=== PATIENT | female | born 1970 | race Caucasian/White ===

== ENCOUNTER 2022-08-13 17:15 | Outpatient (CLI) | payer OTHER, SELFPAY | END 2022-08-13 17:16 | disposition home or self-care (01) | LOC: AMB 08-25 06:30 | PROVIDERS: PCP Obstetrics & Gynecology; Visit Provider Family Medicine | DX: R07.89 Other chest pain (principal) | CPT/HCPCS: A0425; A0427 ==

== ENCOUNTER 2022-08-13 17:44 | Inpatient (IN) | payer OTHER, SELFPAY ==
[2022-08-13] VITALS (31 sets, daily range): BP systolic 112–156; BP diastolic 69–98; PULSE 54–79; RESP 16–18; TEMP 36.6; O2SAT 95–99; BMI 19.8
--- NOTE | 2022-08-13 18:18 | ED_ITS ---
HPI - Chest Pain General Chief Complaint: Chest Pain <Jesus Bazan MD - Last Filed: 08/14/22 01:06> Stated Complaint: Ill <Jesus Bazan MD - Last Filed: 08/14/22 01:06> Time Seen by Provider: 08/13/22 17:55 <Jesus Bazan MD - Last Filed: 08/14/22 01:06> History of Present Illness HPI narrative: 52-year-old woman who was out walking her dogs when had sudden onset of burning aching mid chest pain and then feeling like her heart was beating really hard. She then started to have some tingling in her extremities specifically she was referring to her arms. Does recall herself to be hyperventilating but she says she did try to control her breathing and that seemed to help. Does not have any cardiovascular disease that she knows of. No significant family history of cardiovascular disease. This discomfort lasted around 20 minutes she says although she also wonders how long it is going to last admitting it is a fraction of what it was before. She does not report feeling lightheadedness. She was feeling some nausea. Does exercise regularly walking and running apparently. No exercise intolerance noted. <Jesus Bazan MD - Last Filed: 08/14/22 01:06> Related Data Home Medications: Home Medications Medication Instructions Recorded Confirmed No Known Home Medications 08/13/22 08/13/22 <Jesus Bazan MD - Last Filed: 08/14/22 01:06> Allergies/Adverse Reactions: Allergies Allergy/AdvReac Type Severity Reaction Status Date / Time penicillin V Allergy Severe Rash Verified 05/31/22 16:08 amoxicillin Allergy Mild Hives Verified 05/31/22 16:08 <Jesus Bazan MD - Last Filed: 08/14/22 01:06> Review of Systems Status of ROS Reports: 10 or more systems reviewed and unremarkable except as noted in History and below <Jesus Bazan MD - Last Filed: 08/14/22 01:06> [facility] Medical History: Medical History (Updated 08/14/22 @ 01:18 by Nabeel Brito RN) Encounter for well woman exam No significant past medical history <Jesus Bazan MD - Last Filed: 08/14/22 01:06> Surgical History: Surgical History (Updated 08/14/22 @ 01:18 by Nabeel Brito RN) No significant past surgical history <Jesus Bazan MD - Last Filed: 08/14/22 01:06> Social History: Social History Highest level of school completed/degree received: Bachelor's degree Smoking Status: Never smoker How often do you have a drink containing alcohol: 2-3 times a week How many standard drinks containing alcohol do you have on a typical day: 1 or 2 How often do you have six or more drinks on one occasion: Never AUDIT-C Alcohol total score: 3 Non-prescribed substance use: denies use Caffeine: Yes (DAILY IN AM) service: No <Jesus Bazan MD - Last Filed: 08/14/22 01:06> Exam Narrative Exam Narrative: Very pleasant, calm, slim. Speaks in a very measured manner. Oropharynx is unremarkable. Neck is supple. Lungs are clear breath sounds throughout No reproducible pain to palpation. Abdomen is soft and nontender. Moving all extremities without difficulty. She is well-perfused peripherally with equal radial pulses.. No sensory disturbance appreciated. Full strength throughout. <Jesus Bazan MD - Last Filed: 08/14/22 01:06> Const Vital Signs, click to edit/add: Vital Signs - 24 hr 08/13/22 18:00 08/13/22 18:23 08/13/22 18:05 Temperature 97.8 F Pulse Rate 63 Pulse Rate [Pulse Oximeter] 63 Respiratory Rate 16 Blood Pressure 135/82 Blood Pressure [Left Upper Arm] 135/82 Pulse Oximetry 97 98 97 Oxygen Delivery Method Room Air 08/13/22 18:06 08/13/22 18:30 08/13/22 19:11 Temperature Pulse Rate 63 62 55 L Pulse Rate [Pulse Oximeter] Respiratory Rate Blood Pressure Blood Pressure [Left Upper Arm] Pulse Oximetry 98 99 97 Oxygen Delivery Method 08/13/22 19:12 08/13/22 19:30 08/13/22 19:31 Temperature Pulse Rate 60 73 74 Pulse Rate [Pulse Oximeter] Respiratory Rate Blood Pressure 126/81 135/98 H Blood Pressure [Left Upper Arm] Pulse Oximetry 95 97 97 Oxygen Delivery Method 08/13/22 19:32 08/13/22 20:00 08/13/22 20:01 Temperature Pulse Rate 65 79 75 Pulse Rate [Pulse Oximeter] Respiratory Rate Blood Pressure 148/88 H Blood Pressure [Left Upper Arm] Pulse Oximetry 98 98 98 Oxygen Delivery Method 08/13/22 20:27 08/13/22 20:30 08/13/22 20:31 Temperature Pulse Rate 63 75 77 Pulse Rate [Pulse Oximeter] Respiratory Rate Blood Pressure 156/92 H 124/77 Blood Pressure [Left Upper Arm] Pulse Oximetry 98 96 96 Oxygen Delivery Method 08/13/22 20:41 08/13/22 20:51 08/13/22 21:00 Temperature Pulse Rate 74 63 63 Pulse Rate [Pulse Oximeter] Respiratory Rate Blood Pressure 128/76 128/75 Blood Pressure [Left Upper Arm] Pulse Oximetry 96 97 98 Oxygen Delivery Method 08/13/22 21:01 08/13/22 21:02 08/13/22 21:11 Temperature Pulse Rate 61 60 58 L Pulse Rate [Pulse Oximeter] Respiratory Rate Blood Pressure 124/85 112/71 Blood Pressure [Left Upper Arm] Pulse Oximetry 97 97 98 Oxygen Delivery Method 08/13/22 21:30 08/13/22 21:31 08/13/22 21:32 Temperature Pulse Rate 57 L 66 63 Pulse Rate [Pulse Oximeter] Respiratory Rate Blood Pressure 112/69 Blood Pressure [Left Upper Arm] Pulse Oximetry 97 96 96 Oxygen Delivery Method 08/13/22 22:00 08/13/22 22:01 08/13/22 22:02 Temperature Pulse Rate 58 L 75 57 L Pulse Rate [Pulse Oximeter] Respiratory Rate Blood Pressure 116/75 Blood Pressure [Left Upper Arm] Pulse Oximetry 96 97 97 Oxygen Delivery Method 08/13/22 22:30 08/13/22 22:31 08/13/22 23:01 Temperature Pulse Rate 61 61 64 Pulse Rate [Pulse Oximeter] Respiratory Rate 18 Blood Pressure 124/74 123/74 Blood Pressure [Left Upper Arm] Pulse Oximetry 97 97 98 Oxygen Delivery Method 08/13/22 23:31 08/14/22 00:01 08/14/22 00:31 Temperature Pulse Rate 54 L 57 L 55 L Pulse Rate [Pulse Oximeter] Respiratory Rate 16 16 16 Blood Pressure 116/71 123/75 130/80 Blood Pressure [Left Upper Arm] Pulse Oximetry 97 97 97 Oxygen Delivery Method 08/14/22 01:01 08/14/22 01:31 08/14/22 02:01 Temperature Pulse Rate 67 67 54 L Pulse Rate [Pulse Oximeter] Respiratory Rate 16 16 16 Blood Pressure 115/69 117/83 124/76 Blood Pressure [Left Upper Arm] Pulse Oximetry 96 98 97 Oxygen Delivery Method 08/14/22 02:31 08/14/22 03:01 08/14/22 03:31 Temperature Pulse Rate 73 66 63 Pulse Rate [Pulse Oximeter] Respiratory Rate 16 16 18 Blood Pressure 115/77 131/67 130/79 Blood Pressure [Left Upper Arm] Pulse Oximetry 97 100 98 Oxygen Delivery Method 08/14/22 04:01 08/14/22 04:31 08/14/22 05:01 Temperature Pulse Rate 57 L 73 56 L Pulse Rate [Pulse Oximeter] Respiratory Rate 18 16 18 Blood Pressure 122/78 114/68 130/83 Blood Pressure [Left Upper Arm] Pulse Oximetry 97 96 98 Oxygen Delivery Method 08/14/22 05:26 08/14/22 06:01 08/14/22 07:00 Temperature Pulse Rate 70 59 L Pulse Rate [Pulse Oximeter] 58 L Respiratory Rate 18 18 Blood Pressure 127/74 Blood Pressure [Left Upper Arm] 130/83 Pulse Oximetry 98 100 99 Oxygen Delivery Method Room Air 08/14/22 07:01 08/14/22 08:00 08/14/22 08:01 Temperature Pulse Rate 65 67 65 Pulse Rate [Pulse Oximeter] Respiratory Rate Blood Pressure 127/81 128/77 Blood Pressure [Left Upper Arm] Pulse Oximetry 98 100 100 Oxygen Delivery Method 08/14/22 09:00 08/14/22 09:01 08/14/22 09:02 Temperature Pulse Rate 58 L 62 62 Pulse Rate [Pulse Oximeter] Respiratory Rate Blood Pressure 127/85 Blood Pressure [Left Upper Arm] Pulse Oximetry 98 98 97 Oxygen Delivery Method 08/14/22 09:39 08/14/22 10:00 08/14/22 10:01 Temperature Pulse Rate 53 L 55 L 58 L Pulse Rate [Pulse Oximeter] Respiratory Rate Blood Pressure 134/83 130/79 Blood Pressure [Left Upper Arm] Pulse Oximetry 100 99 99 Oxygen Delivery Method 08/14/22 11:00 08/14/22 11:05 08/14/22 11:42 Temperature Pulse Rate 70 69 77 Pulse Rate [Pulse Oximeter] Respiratory Rate Blood Pressure 125/87 Blood Pressure [Left Upper Arm] Pulse Oximetry 96 97 95 Oxygen Delivery Method 08/14/22 11:46 08/14/22 11:51 08/14/22 11:56 Temperature Pulse Rate 65 62 Pulse Rate [Pulse Oximeter] Respiratory Rate Blood Pressure 134/84 129/77 124/79 Blood Pressure [Left Upper Arm] Pulse Oximetry 96 96 Oxygen Delivery Method <Jesus Baazn MD - Last Filed: 08/14/22 01:06> Vital Signs - 24 hr 08/13/22 18:00 08/13/22 18:23 08/13/22 18:05 Temperature 97.8 F Pulse Rate 63 Pulse Rate [Pulse Oximeter] 63 Respiratory Rate 16 Blood Pressure 135/82 Blood Pressure [Left Upper Arm] 135/82 Pulse Oximetry 97 98 97 Oxygen Delivery Method Room Air 08/13/22 18:06 08/13/22 18:30 08/13/22 19:11 Temperature Pulse Rate 63 62 55 L Pulse Rate [Pulse Oximeter] Respiratory Rate Blood Pressure Blood Pressure [Left Upper Arm] Pulse Oximetry 98 99 97 Oxygen Delivery Method 08/13/22 19:12 08/13/22 19:30 08/13/22 19:31 Temperature Pulse Rate 60 73 74 Pulse Rate [Pulse Oximeter] Respiratory Rate Blood Pressure 126/81 135/98 H Blood Pressure [Left Upper Arm] Pulse Oximetry 95 97 97 Oxygen Delivery Method 08/13/22 19:32 08/13/22 20:00 08/13/22 20:01 Temperature Pulse Rate 65 79 75 Pulse Rate [Pulse Oximeter] Respiratory Rate Blood Pressure 148/88 H Blood Pressure [Left Upper Arm] Pulse Oximetry 98 98 98 Oxygen Delivery Method 08/13/22 20:27 08/13/22 20:30 08/13/22 20:31 Temperature Pulse Rate 63 75 77 Pulse Rate [Pulse Oximeter] Respiratory Rate Blood Pressure 156/92 H 124/77 Blood Pressure [Left Upper Arm] Pulse Oximetry 98 96 96 Oxygen Delivery Method 08/13/22 20:41 08/13/22 20:51 08/13/22 21:00 Temperature Pulse Rate 74 63 63 Pulse Rate [Pulse Oximeter] Respiratory Rate Blood Pressure 128/76 128/75 Blood Pressure [Left Upper Arm] Pulse Oximetry 96 97 98 Oxygen Delivery Method 08/13/22 21:01 11/30/22 21:02 08/13/22 21:11 Temperature Pulse Rate 61 60 58 L Pulse Rate [Pulse Oximeter] Respiratory Rate Blood Pressure 124/85 112/71 Blood Pressure [Left Upper Arm] Pulse Oximetry 97 97 98 Oxygen Delivery Method 08/13/22 21:30 08/13/22 21:31 08/13/22 21:32 Temperature Pulse Rate 57 L 66 63 Pulse Rate [Pulse Oximeter] Respiratory Rate Blood Pressure 112/69 Blood Pressure [Left Upper Arm] Pulse Oximetry 97 96 96 Oxygen Delivery Method 08/13/22 22:00 08/13/22 22:01 08/13/22 22:02 Temperature Pulse Rate 58 L 75 57 L Pulse Rate [Pulse Oximeter] Respiratory Rate Blood Pressure 116/75 Blood Pressure [Left Upper Arm] Pulse Oximetry 96 97 97 Oxygen Delivery Method 08/13/22 22:30 08/13/22 22:31 08/13/22 23:01 Temperature Pulse Rate 61 61 64 Pulse Rate [Pulse Oximeter] Respiratory Rate 18 Blood Pressure 124/74 123/74 Blood Pressure [Left Upper Arm] Pulse Oximetry 97 97 98 Oxygen Delivery Method 08/13/22 23:31 08/14/22 00:01 08/14/22 00:31 Temperature Pulse Rate 54 L 57 L 55 L Pulse Rate [Pulse Oximeter] Respiratory Rate 16 16 16 Blood Pressure 116/71 123/75 130/80 Blood Pressure [Left Upper Arm] Pulse Oximetry 97 97 97 Oxygen Delivery Method 08/14/22 01:01 08/14/22 01:31 08/14/22 02:01 Temperature Pulse Rate 67 67 54 L Pulse Rate [Pulse Oximeter] Respiratory Rate 16 16 16 Blood Pressure 115/69 117/83 124/76 Blood Pressure [Left Upper Arm] Pulse Oximetry 96 98 97 Oxygen Delivery Method 08/14/22 02:31 08/14/22 03:01 08/14/22 03:31 Temperature Pulse Rate 73 66 63 Pulse Rate [Pulse Oximeter] Respiratory Rate 16 16 18 Blood Pressure 115/77 131/67 130/79 Blood Pressure [Left Upper Arm] Pulse Oximetry 97 100 98 Oxygen Delivery Method 08/14/22 04:01 08/14/22 04:31 08/14/22 05:01 Temperature Pulse Rate 57 L 73 56 L Pulse Rate [Pulse Oximeter] Respiratory Rate 18 16 18 Blood Pressure 122/78 114/68 130/83 Blood Pressure [Left Upper Arm] Pulse Oximetry 97 96 98 Oxygen Delivery Method 08/14/22 05:26 08/14/22 06:01 08/14/22 07:00 Temperature Pulse Rate 70 59 L Pulse Rate [Pulse Oximeter] 58 L Respiratory Rate 18 18 Blood Pressure 127/74 Blood Pressure [Left Upper Arm] 130/83 Pulse Oximetry 98 100 99 Oxygen Delivery Method Room Air 08/14/22 07:01 08/14/22 08:00 08/14/22 08:01 Temperature Pulse Rate 65 67 65 Pulse Rate [Pulse Oximeter] Respiratory Rate Blood Pressure 127/81 128/77 Blood Pressure [Left Upper Arm] Pulse Oximetry 98 100 100 Oxygen Delivery Method 08/14/22 09:00 08/14/22 09:01 08/14/22 09:02 Temperature Pulse Rate 58 L 62 62 Pulse Rate [Pulse Oximeter] Respiratory Rate Blood Pressure 127/85 Blood Pressure [Left Upper Arm] Pulse Oximetry 98 98 97 Oxygen Delivery Method 08/14/22 09:39 08/14/22 10:00 08/14/22 10:01 Temperature Pulse Rate 53 L 55 L 58 L Pulse Rate [Pulse Oximeter] Respiratory Rate Blood Pressure 134/83 130/79 Blood Pressure [Left Upper Arm] Pulse Oximetry 100 99 99 Oxygen Delivery Method 08/14/22 11:00 08/14/22 11:05 08/14/22 11:42 Temperature Pulse Rate 70 69 77 Pulse Rate [Pulse Oximeter] Respiratory Rate Blood Pressure 125/87 Blood Pressure [Left Upper Arm] Pulse Oximetry 96 97 95 Oxygen Delivery Method 08/14/22 11:46 08/14/22 11:51 08/14/22 11:56 Temperature Pulse Rate 65 62 Pulse Rate [Pulse Oximeter] Respiratory Rate Blood Pressure 134/84 129/77 124/79 Blood Pressure [Left Upper Arm] Pulse Oximetry 96 96 Oxygen Delivery Method <Makenzie Javed MD - Last Filed: 08/15/22 15:50> Vital Signs - 24 hr 08/13/22 18:00 08/13/22 18:23 08/13/22 18:05 Temperature 97.8 F Pulse Rate 63 Pulse Rate [Pulse Oximeter] 63 Respiratory Rate 16 Blood Pressure 135/82 Blood Pressure [Left Upper Arm] 135/82 Pulse Oximetry 97 98 97 Oxygen Delivery Method Room Air 08/13/22 18:06 08/13/22 18:30 08/13/22 19:11 Temperature Pulse Rate 63 62 55 L Pulse Rate [Pulse Oximeter] Respiratory Rate Blood Pressure Blood Pressure [Left Upper Arm] Pulse Oximetry 98 99 97 Oxygen Delivery Method 08/13/22 19:12 08/13/22 19:30 08/13/22 19:31 Temperature Pulse Rate 60 73 74 Pulse Rate [Pulse Oximeter] Respiratory Rate Blood Pressure 126/81 135/98 H Blood Pressure [Left Upper Arm] Pulse Oximetry 95 97 97 Oxygen Delivery Method 08/13/22 19:32 08/13/22 20:00 08/13/22 20:01 Temperature Pulse Rate 65 79 75 Pulse Rate [Pulse Oximeter] Respiratory Rate Blood Pressure 148/88 H Blood Pressure [Left Upper Arm] Pulse Oximetry 98 98 98 Oxygen Delivery Method 08/13/22 20:27 08/13/22 20:30 08/13/22 20:31 Temperature Pulse Rate 63 75 77 Pulse Rate [Pulse Oximeter] Respiratory Rate Blood Pressure 156/92 H 124/77 Blood Pressure [Left Upper Arm] Pulse Oximetry 98 96 96 Oxygen Delivery Method 08/13/22 20:41 08/13/22 20:51 08/13/22 21:00 Temperature Pulse Rate 74 63 63 Pulse Rate [Pulse Oximeter] Respiratory Rate Blood Pressure 128/76 128/75 Blood Pressure [Left Upper Arm] Pulse Oximetry 96 97 98 Oxygen Delivery Method 08/13/22 21:01 08/13/22 21:02 08/13/22 21:11 Temperature Pulse Rate 61 60 58 L Pulse Rate [Pulse Oximeter] Respiratory Rate Blood Pressure 124/85 112/71 Blood Pressure [Left Upper Arm] Pulse Oximetry 97 97 98 Oxygen Delivery Method 08/13/22 21:30 08/13/22 21:31 08/13/22 21:32 Temperature Pulse Rate 57 L 66 63 Pulse Rate [Pulse Oximeter] Respiratory Rate Blood Pressure 112/69 Blood Pressure [Left Upper Arm] Pulse Oximetry 97 96 96 Oxygen Delivery Method 08/13/22 22:00 08/13/22 22:01 08/13/22 22:02 Temperature Pulse Rate 58 L 75 57 L Pulse Rate [Pulse Oximeter] Respiratory Rate Blood Pressure 116/75 Blood Pressure [Left Upper Arm] Pulse Oximetry 96 97 97 Oxygen Delivery Method 08/13/22 22:30 08/13/22 22:31 08/13/22 23:01 Temperature Pulse Rate 61 61 64 Pulse Rate [Pulse Oximeter] Respiratory Rate 18 Blood Pressure 124/74 123/74 Blood Pressure [Left Upper Arm] Pulse Oximetry 97 97 98 Oxygen Delivery Method 08/13/22 23:31 08/14/22 00:01 08/14/22 00:31 Temperature Pulse Rate 54 L 57 L 55 L Pulse Rate [Pulse Oximeter] Respiratory Rate 16 16 16 Blood Pressure 116/71 123/75 130/80 Blood Pressure [Left Upper Arm] Pulse Oximetry 97 97 97 Oxygen Delivery Method 08/14/22 01:01 08/14/22 01:31 08/14/22 02:01 Temperature Pulse Rate 67 67 54 L Pulse Rate [Pulse Oximeter] Respiratory Rate 16 16 16 Blood Pressure 115/69 117/83 124/76 Blood Pressure [Left Upper Arm] Pulse Oximetry 96 98 97 Oxygen Delivery Method 08/14/22 02:31 08/14/22 03:01 08/14/22 03:31 Temperature Pulse Rate 73 66 63 Pulse Rate [Pulse Oximeter] Respiratory Rate 16 16 18 Blood Pressure 115/77 131/67 130/79 Blood Pressure [Left Upper Arm] Pulse Oximetry 97 100 98 Oxygen Delivery Method 08/14/22 04:01 08/14/22 04:31 08/14/22 05:01 Temperature Pulse Rate 57 L 73 56 L Pulse Rate [Pulse Oximeter] Respiratory Rate 18 16 18 Blood Pressure 122/78 114/68 130/83 Blood Pressure [Left Upper Arm] Pulse Oximetry 97 96 98 Oxygen Delivery Method 08/14/22 05:26 08/14/22 06:01 08/14/22 07:00 Temperature Pulse Rate 70 59 L Pulse Rate [Pulse Oximeter] 58 L Respiratory Rate 18 18 Blood Pressure 127/74 Blood Pressure [Left Upper Arm] 130/83 Pulse Oximetry 98 100 99 Oxygen Delivery Method Room Air 08/14/22 07:01 08/14/22 08:00 08/14/22 08:01 Temperature Pulse Rate 65 67 65 Pulse Rate [Pulse Oximeter] Respiratory Rate Blood Pressure 127/81 128/77 Blood Pressure [Left Upper Arm] Pulse Oximetry 98 100 100 Oxygen Delivery Method 08/14/22 09:00 08/14/22 09:01 08/14/22 09:02 Temperature Pulse Rate 58 L 62 62 Pulse Rate [Pulse Oximeter] Respiratory Rate Blood Pressure 127/85 Blood Pressure [Left Upper Arm] Pulse Oximetry 98 98 97 Oxygen Delivery Method 08/14/22 09:39 08/14/22 10:00 08/14/22 10:01 Temperature Pulse Rate 53 L 55 L 58 L Pulse Rate [Pulse Oximeter] Respiratory Rate Blood Pressure 134/83 130/79 Blood Pressure [Left Upper Arm] Pulse Oximetry 100 99 99 Oxygen Delivery Method 08/14/22 11:00 08/14/22 11:05 08/14/22 11:42 Temperature Pulse Rate 70 69 77 Pulse Rate [Pulse Oximeter] Respiratory Rate Blood Pressure 125/87 Blood Pressure [Left Upper Arm] Pulse Oximetry 96 97 95 Oxygen Delivery Method 08/14/22 11:46 08/14/22 11:51 08/14/22 11:56 Temperature Pulse Rate 65 62 Pulse Rate [Pulse Oximeter] Respiratory Rate Blood Pressure 134/84 129/77 124/79 Blood Pressure [Left Upper Arm] Pulse Oximetry 96 96 Oxygen Delivery Method <Frances Drew MD - Last Filed: 08/14/22 16:30> Documenting provider has reviewed patient's vital signs: yes <Jesus Bazan MD - Last Filed: 08/14/22 01:06> Course Reevaluation(s) Reevaluation #1: Patient was signed out to me in 8:00 a.m. on 08/14/2022. Had remained stable throughout the night on a heparin drip. This morning patient's troponins were trending down. We tried again multiple times at multiple hospitals to transfer the patient and there were no available beds. She was having some more pain this morning to 10/24, therefore we did go ahead and start a nitro drip. EKG was repeated this morning without any significant changes. Patient was a dmitted to our medical floor for further management. <Frances Drew MD - Last Filed: 08/14/22 16:30> Vital Signs Vital signs: Initial Vital Signs Temperature 97.8 F 08/13/22 18:00 Temperature Source Temporal Artery Scan 08/13/22 18:00 Pulse Rate 63 08/13/22 18:00 Respiratory Rate 16 08/13/22 18:00 Blood Pressure 135/82 08/13/22 18:00 Blood Pressure Mean 99 08/13/22 18:00 Pulse Oximetry 97 08/13/22 18:00 Oxygen Delivery Method 08/13/22 18:00 Vital Signs Temperature 97.8 F 08/13/22 18:00 Pulse Rate 63 08/13/22 18:00 Respiratory Rate 16 08/13/22 18:00 Blood Pressure 135/82 08/13/22 18:00 Pulse Oximetry 97 08/13/22 18:00 Oxygen Delivery Method 08/13/22 18:00 Temperature 97.2 F L 08/15/22 11:00 Pulse Rate 62 08/15/22 11:00 Respiratory Rate 16 08/15/22 11:00 Blood Pressure 133/87 08/15/22 11:00 Pulse Oximetry 100 08/15/22 11:00 Oxygen Delivery Method 08/15/22 11:00 <Jesus Bazan MD - Last Filed: 08/14/22 01:06> Initial Vital Signs Temperature 97.8 F 08/13/22 18:00 Temperature Source Temporal Artery Scan 08/13/22 18:00 Pulse Rate 63 08/13/22 18:00 Respiratory Rate 16 08/13/22 18:00 Blood Pressure 135/82 08/13/22 18:00 Blood Pressure Mean 99 08/13/22 18:00 Pulse Oximetry 97 08/13/22 18:00 Oxygen Delivery Method 08/13/22 18:00 Vital Signs Temperature 97.8 F 08/13/22 18:00 Pulse Rate 63 08/13/22 18:00 Respiratory Rate 16 08/13/22 18:00 Blood Pressure 135/82 08/13/22 18:00 Pulse Oximetry 97 08/13/22 18:00 Oxygen Delivery Method 08/13/22 18:00 Temperature 97.2 F L 08/15/22 11:00 Pulse Rate 62 08/15/22 11:00 Respiratory Rate 16 08/15/22 11:00 Blood Pressure 133/87 08/15/22 11:00 Pulse Oximetry 100 08/15/22 11:00 Oxygen Delivery Method 08/15/22 11:00 <Makenzie Javed MD - Last Filed: 08/15/22 15:50> Initial Vital Signs Temperature 97.8 F 08/13/22 18:00 Temperature Source Temporal Artery Scan 08/13/22 18:00 Pulse Rate 63 08/13/22 18:00 Respiratory Rate 16 08/13/22 18:00 Blood Pressure 135/82 08/13/22 18:00 Blood Pressure Mean 99 08/13/22 18:00 Pulse Oximetry 97 08/13/22 18:00 Oxygen Delivery Method 08/13/22 18:00 Vital Signs Temperature 97.8 F 08/13/22 18:00 Pulse Rate 63 08/13/22 18:00 Respiratory Rate 16 08/13/22 18:00 Blood Pressure 135/82 08/13/22 18:00 Pulse Oximetry 97 08/13/22 18:00 Oxygen Delivery Method 08/13/22 18:00 Temperature 97.2 F L 08/15/22 11:00 Pulse Rate 62 08/15/22 11:00 Respiratory Rate 16 08/15/22 11:00 Blood Pressure 133/87 08/15/22 11:00 Pulse Oximetry 100 08/15/22 11:00 Oxygen Delivery Method 08/15/22 11:00 <Frances Drew MD - Last Filed: 08/14/22 16:30> MDM - Chest Pain MDM Narrative Medical decision making narrative: The tingling and necessitating controlling of breathing do sound suspicious for panic attack. Labs however were collected and indeed initial sets of troponin were positive. Had been reporting minimal chest discomfort though arrives later noting that tends to minimize. Since still having some discomfort will offer nitroglycerin. Trending trops and EKG Trops have elevated. Pain continues mildly. May have improved a little bit with nitroglycerin. A 3/10. EKG does seem to show some T-wave inversion although I think this is somewhat equivocal. Low risk for a ischemic cardiac thrombosis. No stressful event to account for stress vasospasm. Possible coronary dissection or pulmonary embolus however atypical symptoms for pulmonary embolus and D-dimer is negative. Have discussed again with Cardiology Dr. العلي. We had held ACS protocol heparin following the bolus dosing, pending normal D-dimer. Third EKG actually looks improved from prior so not qualifying for urgent transport as level 2 to [place]. Continuing heparin protocol. Overall more comfortable. 2/10 iscomfort. We have also exhausted options regionally for hospitalization. Will be handing off at change of shift. Looking again for cardiac cares in the morning. <Jesus Bazan MD - Last Filed: 08/14/22 01:06> The tingling and necessitating controlling of breathing do sound suspicious for panic attack. Labs however were collected and indeed initial sets of troponin were positive. Had been reporting minimal chest discomfort though arrives later noting that tends to minimize. Since still having some discomfort will offer nitroglycerin. Trending trops and EKG Trops have elevated. Pain continues mildly. May have improved a little bit with nitroglycerin. A 3/10. EKG does seem to show some T-wave inversion although I think this is somewhat equivocal. Low risk for a ischemic cardiac thrombosis. No stressful event to account for stress vasospasm. Possible coronary dissection or pulmonary embolus however atypical symptoms for pulmonary embolus and D-dimer is negative. Have discussed again with Cardiology Dr. العلي. We had held ACS protocol heparin following the bolus dosing, pending normal D-dimer. Third EKG actually looks improved from prior so not qualifying for urgent transport as level 2 to [place]. Continuing heparin protocol. Overall more comfortable. 10/24 iscomfort. We have also exhausted options regionally for hospitalization. Will be handing off at change of shift. Looking again for cardiac cares in the morning. Update 0 700: Dr. Javed: Patient has remained resting through the night, rating her pain typically around 2/10, marked improvement. Heparin running per protocol. Rate slightly decreased after initial labs. Has not required any further nitroglycerin. Spoke with [facility] and they have advised to call back after 730 with an update. We are still hoping to transfer. trend on troponin levels noted. Vital signs have remained stable, reassuring. <Makenzie Javed MD - Last Filed: 08/15/22 15:50> Lab Data Attestation: I reviewed the patient's lab results. <Jesus Bazan MD - Last Filed: 08/14/22 01:06> Labs: Lab Results 08/13/22 08/13/22 08/13/22 Range/Units 18:36 18:36 18:36 WBC 5.56 (4.50-11.00) K/uL Corrected WBC RBC 4.20 (4.00-5.20) m/uL Hgb 12.7 (12.0-16.0) gm/dL Hct 37.8 (33.0-51.0) % MCV 90 (80-100) fL MCH 30 (26-34) pg MCHC 34 (32-36) gm/dL RDW Coeff of Selam 12.0 (11.5-15.5) % Plt Count 186 (140-440) K/uL Neut % (Auto) 61.5 (42.0-72.0) % Lymph % (Auto) 30.4 (20-44) % Ritchie % (Auto) 6.3 (0.0-11.0) % Eos % (Auto) 0.9 (0.0-7.0) % Baso % (Auto) 0.9 (0.0-3.0) % Neut # (Auto) 3.42 (1.7-7.0) K/uL Lymph # (Auto) 1.69 (0.90-2.90) K/uL Ritchie # (Auto) 0.40 (0.00-0.90) K/UL Eos # (Auto) 0.05 (0.00-0.50) K/uL Baso # (Auto) 0.05 (0.00-0.30) K/uL Abs Immat Gran (auto) 0.00 (0.00-0.30) K/uL Imm/Tot Granulo (auto) 0.0 % INR (0.91-1.10) APTT (23-33) Seconds D-Dimer Quant (PE/DVT) (0.00-0.50) ug/ml Sodium 139 (135-149) mmol/L Potassium 4.7 (3.6-5.1) mmol/L Chloride 104 (96-114) mmol/L Carbon Dioxide 31 (20-32) mmol/L BUN 24 (7-30) mg/dL Creatinine 0.6 (0.5-1.5) mg/dL Estimated Creat Clear 87.96 Estimated GFR 108 ml/min Glucose 112 (60-115) mg/dL Calcium 9.2 (8.4-10.6) mg/dL Troponin I 0.26 H* (0.01-0.04) ng/mL TSH (0.270-4.20) uIU/mL SARS-CoV-2 (PCR) (Negative) Influenza Type A (PCR) (Negative) Influenza Type B (PCR) (Negative) RSV (PCR) (Negative) POC Troponin I 0.20 H (0.01-0.04) ng/ml 08/13/22 08/13/22 08/13/22 Range/Units 18:36 18:36 18:36 WBC Cancelled (4.50-11.00) K/uL Corrected WBC Cancelled RBC Cancelled (4.00-5.20) m/uL Hgb Cancelled (12.0-16.0) gm/dL Hct Cancelled (33.0-51.0) % MCV Cancelled (80-100) fL MCH Cancelled (26-34) pg MCHC Cancelled (32-36) gm/dL RDW Coeff of Selam Cancelled (11.5-15.5) % Plt Count Cancelled (140-440) K/uL Neut % (Auto) Cancelled (42.0-72.0) % Lymph % (Auto) Cancelled (20-44) % Ritchie % (Auto) Cancelled (0.0-11.0) % Eos % (Auto) Cancelled (0.0-7.0) % Baso % (Auto) Cancelled (0.0-3.0) % Neut # (Auto) Cancelled (1.7-7.0) K/uL Lymph # (Auto) Cancelled (0.90-2.90) K/uL Ritchie # (Auto) Cancelled (0.00-0.90) K/UL Eos # (Auto) Cancelled (0.00-0.50) K/uL Baso # (Auto) Cancelled (0.00-0.30) K/uL Abs Immat Gran (auto) Cancelled (0.00-0.30) K/uL Imm/Tot Granulo (auto) Cancelled % INR 0.97 0.98 (0.91-1.10) APTT 31 (23-33) Seconds D-Dimer Quant (PE/DVT) 0.32 (0.00-0.50) ug/ml Sodium (135-149) mmol/L Potassium (3.6-5.1) mmol/L Chloride (96-114) mmol/L Carbon Dioxide (20-32) mmol/L BUN (7-30) mg/dL Creatinine (0.5-1.5) mg/dL Estimated Creat Clear Estimated GFR ml/min Glucose (60-115) mg/dL Calcium (8.4-10.6) mg/dL Troponin I (0.01-0.04) ng/mL TSH (0.270-4.20) uIU/mL SARS-CoV-2 (PCR) (Negative) Influenza Type A (PCR) (Negative) Influenza Type B (PCR) (Negative) RSV (PCR) (Negative) POC Troponin I (0.01-0.04) ng/ml 08/13/22 08/13/22 08/13/22 Range/Units 18:36 19:30 20:10 WBC (4.50-11.00) K/uL Corrected WBC RBC (4.00-5.20) m/uL Hgb (12.0-16.0) gm/dL Hct (33.0-51.0) % MCV (80-100) fL MCH (26-34) pg MCHC (32-36) gm/dL RDW Coeff of Selam (11.5-15.5) % Plt Count (140-440) K/uL Neut % (Auto) (42.0-72.0) % Lymph % (Auto) (20-44) % Ritchie % (Auto) (0.0-11.0) % Eos % (Auto) (0.0-7.0) % Baso % (Auto) (0.0-3.0) % Neut # (Auto) (1.7-7.0) K/uL Lymph # (Auto) (0.90-2.90) K/uL Ritchie # (Auto) (0.00-0.90) K/UL Eos # (Auto) (0.00-0.50) K/uL Baso # (Auto) (0.00-0.30) K/uL Abs Immat Gran (auto) (0.00-0.30) K/uL Imm/Tot Granulo (auto) % INR (0.91-1.10) APTT (23-33) Seconds D-Dimer Quant (PE/DVT) (0.00-0.50) ug/ml Sodium (135-149) mmol/L Potassium (3.6-5.1) mmol/L Chloride (96-114) mmol/L Carbon Dioxide (20-32) mmol/L BUN (7-30) mg/dL Creatinine (0.5-1.5) mg/dL Estimated Creat Clear Estimated GFR ml/min Glucose (60-115) mg/dL Calcium (8.4-10.6) mg/dL Troponin I (0.01-0.04) ng/mL TSH 3.930 (0.270-4.20) uIU/mL SARS-CoV-2 (PCR) Negative SARS-CoV-2 (Negative) Influenza Type A (PCR) Negative PCR FLU A (Negative) Influenza Type B (PCR) Negative PCR FLU B (Negative) RSV (PCR) Negative PCR RSV (Negative) POC Troponin I 0.89 H (0.01-0.04) ng/ml 08/13/22 08/14/22 08/14/22 Range/Units 21:40 04:35 04:35 WBC 5.22 (4.50-11.00) K/uL Corrected WBC RBC 4.23 (4.00-5.20) m/uL Hgb 12.7 (12.0-16.0) gm/dL Hct 38.3 (33.0-51.0) % MCV 91 (80-100) fL MCH 30 (26-34) pg MCHC 33 (32-36) gm/dL RDW Coeff of Selam (11.5-15.5) % Plt Count 164 (140-440) K/uL Neut % (Auto) (42.0-72.0) % Lymph % (Auto) (20-44) % Ritchie % (Auto) (0.0-11.0) % Eos % (Auto) (0.0-7.0) % Baso % (Auto) (0.0-3.0) % Neut # (Auto) (1.7-7.0) K/uL Lymph # (Auto) (0.90-2.90) K/uL Ritchie # (Auto) (0.00-0.90) K/UL Eos # (Auto) (0.00-0.50) K/uL Baso # (Auto) (0.00-0.30) K/uL Abs Immat Gran (auto) (0.00-0.30) K/uL Imm/Tot Granulo (auto) % INR (0.91-1.10) APTT (23-33) Seconds D-Dimer Quant (PE/DVT) (0.00-0.50) ug/ml Sodium (135-149) mmol/L Potassium (3.6-5.1) mmol/L Chloride (96-114) mmol/L Carbon Dioxide (20-32) mmol/L BUN (7-30) mg/dL Creatinine (0.5-1.5) mg/dL Estimated Creat Clear Estimated GFR ml/min Glucose (60-115) mg/dL Calcium (8.4-10.6) mg/dL Troponin I 1.21 H* (0.01-0.04) ng/mL TSH (0.270-4.20) uIU/mL SARS-CoV-2 (PCR) (Negative) Influenza Type A (PCR) (Negative) Influenza Type B (PCR) (Negative) RSV (PCR) (Negative) POC Troponin I 1.42 H (0.01-0.04) ng/ml 08/14/22 08/14/22 08/14/22 Range/Units 04:35 04:37 04:37 WBC (4.50-11.00) K/uL Corrected WBC RBC (4.00-5.20) m/uL Hgb (12.0-16.0) gm/dL Hct (33.0-51.0) % MCV (80-100) fL MCH (26-34) pg MCHC (32-36) gm/dL RDW Coeff of Selam (11.5-15.5) % Plt Count (140-440) K/uL Neut % (Auto) (42.0-72.0) % Lymph % (Auto) (20-44) % Ritchie % (Auto) (0.0-11.0) % Eos % (Auto) (0.0-7.0) % Baso % (Auto) (0.0-3.0) % Neut # (Auto) (1.7-7.0) K/uL Lymph # (Auto) (0.90-2.90) K/uL Ritchie # (Auto) (0.00-0.90) K/UL Eos # (Auto) (0.00-0.50) K/uL Baso # (Auto) (0.00-0.30) K/uL Abs Immat Gran (auto) (0.00-0.30) K/uL Imm/Tot Granulo (auto) % INR 1.08 (0.91-1.10) APTT 91 H (23-33) Seconds D-Dimer Quant (PE/DVT) (0.00-0.50) ug/ml Sodium 143 (135-149) mmol/L Potassium 4.6 (3.6-5.1) mmol/L Chloride 108 (96-114) mmol/L Carbon Dioxide 30 (20-32) mmol/L BUN 19 (7-30) mg/dL Creatinine 0.6 (0.5-1.5) mg/dL Estimated Creat Clear 87.96 Estimated GFR 108 ml/min Glucose 89 (60-115) mg/dL Calcium 8.9 (8.4-10.6) mg/dL Troponin I (0.01-0.04) ng/mL TSH (0.270-4.20) uIU/mL SARS-CoV-2 (PCR) (Negative) Influenza Type A (PCR) (Negative) Influenza Type B (PCR) (Negative) RSV (PCR) (Negative) POC Troponin I (0.01-0.04) ng/ml 08/14/22 08/14/22 Range/Units 10:20 11:30 WBC (4.50-11.00) K/uL Corrected WBC RBC (4.00-5.20) m/uL Hgb (12.0-16.0) gm/dL Hct (33.0-51.0) % MCV (80-100) fL MCH (26-34) pg MCHC (32-36) gm/dL RDW Coeff of Selam (11.5-15.5) % Plt Count (140-440) K/uL Neut % (Auto) (42.0-72.0) % Lymph % (Auto) (20-44) % Ritchie % (Auto) (0.0-11.0) % Eos % (Auto) (0.0-7.0) % Baso % (Auto) (0.0-3.0) % Neut # (Auto) (1.7-7.0) K/uL Lymph # (Auto) (0.90-2.90) K/uL Ritchie # (Auto) (0.00-0.90) K/UL Eos # (Auto) (0.00-0.50) K/uL Baso # (Auto) (0.00-0.30) K/uL Abs Immat Gran (auto) (0.00-0.30) K/uL Imm/Tot Granulo (auto) % INR (0.91-1.10) APTT 49 H (23-33) Seconds D-Dimer Quant (PE/DVT) (0.00-0.50) ug/ml Sodium (135-149) mmol/L Potassium (3.6-5.1) mmol/L Chloride (96-114) mmol/L Carbon Dioxide (20-32) mmol/L BUN (7-30) mg/dL Creatinine (0.5-1.5) mg/dL Estimated Creat Clear Estimated GFR ml/min Glucose (60-115) mg/dL Calcium (8.4-10.6) mg/dL Troponin I 0.47 H* (0.01-0.04) ng/mL TSH (0.270-4.20) uIU/mL SARS-CoV-2 (PCR) (Negative) Influenza Type A (PCR) (Negative) Influenza Type B (PCR) (Negative) RSV (PCR) (Negative) POC Troponin I (0.01-0.04) ng/ml <Jesus Bazan MD - Last Filed: 08/14/22 01:06> Lab Results 08/13/22 08/13/22 08/13/22 Range/Units 18:36 18:36 18:36 WBC 5.56 (4.50-11.00) K/uL Corrected WBC RBC 4.20 (4.00-5.20) m/uL Hgb 12.7 (12.0-16.0) gm/dL Hct 37.8 (33.0-51.0) % MCV 90 (80-100) fL MCH 30 (26-34) pg MCHC 34 (32-36) gm/dL RDW Coeff of Selam 12.0 (11.5-15.5) % Plt Count 186 (140-440) K/uL Neut % (Auto) 61.5 (42.0-72.0) % Lymph % (Auto) 30.4 (20-44) % Ritchie % (Auto) 6.3 (0.0-11.0) % Eos % (Auto) 0.9 (0.0-7.0) % Baso % (Auto) 0.9 (0.0-3.0) % Neut # (Auto) 3.42 (1.7-7.0) K/uL Lymph # (Auto) 1.69 (0.90-2.90) K/uL Ritchie # (Auto) 0.40 (0.00-0.90) K/UL Eos # (Auto) 0.05 (0.00-0.50) K/uL Baso # (Auto) 0.05 (0.00-0.30) K/uL Abs Immat Gran (auto) 0.00 (0.00-0.30) K/uL Imm/Tot Granulo (auto) 0.0 % INR (0.91-1.10) APTT (23-33) Seconds D-Dimer Quant (PE/DVT) (0.00-0.50) ug/ml Sodium 139 (135-149) mmol/L Potassium 4.7 (3.6-5.1) mmol/L Chloride 104 (96-114) mmol/L Carbon Dioxide 31 (20-32) mmol/L BUN 24 (7-30) mg/dL Creatinine 0.6 (0.5-1.5) mg/dL Estimated Creat Clear 87.96 Estimated GFR 108 ml/min Glucose 112 (60-115) mg/dL Calcium 9.2 (8.4-10.6) mg/dL Troponin I 0.26 H* (0.01-0.04) ng/mL TSH (0.270-4.20) uIU/mL SARS-CoV-2 (PCR) (Negative) Influenza Type A (PCR) (Negative) Influenza Type B (PCR) (Negative) RSV (PCR) (Negative) POC Troponin I 0.20 H (0.01-0.04) ng/ml 08/13/22 08/13/22 08/13/22 Range/Units 18:36 18:36 18:36 WBC Cancelled (4.50-11.00) K/uL Corrected WBC Cancelled RBC Cancelled (4.00-5.20) m/uL Hgb Cancelled (12.0-16.0) gm/dL Hct Cancelled (33.0-51.0) % MCV Cancelled (80-100) fL MCH Cancelled (26-34) pg MCHC Cancelled (32-36) gm/dL RDW Coeff of Selam Cancelled (11.5-15.5) % Plt Count Cancelled (140-440) K/uL Neut % (Auto) Cancelled (42.0-72.0) % Lymph % (Auto) Cancelled (20-44) % Ritchie % (Auto) Cancelled (0.0-11.0) % Eos % (Auto) Cancelled (0.0-7.0) % Baso % (Auto) Cancelled (0.0-3.0) % Neut # (Auto) Cancelled (1.7-7.0) K/uL Lymph # (Auto) Cancelled (0.90-2.90) K/uL Ritchie # (Auto) Cancelled (0.00-0.90) K/UL Eos # (Auto) Cancelled (0.00-0.50) K/uL Baso # (Auto) Cancelled (0.00-0.30) K/uL Abs Immat Gran (auto) Cancelled (0.00-0.30) K/uL Imm/Tot Granulo (auto) Cancelled % INR 0.97 0.98 (0.91-1.10) APTT 31 (23-33) Seconds D-Dimer Quant (PE/DVT) 0.32 (0.00-0.50) ug/ml Sodium (135-149) mmol/L Potassium (3.6-5.1) mmol/L Chloride (96-114) mmol/L Carbon Dioxide (20-32) mmol/L BUN (7-30) mg/dL Creatinine (0.5-1.5) mg/dL Estimated Creat Clear Estimated GFR ml/min Glucose (60-115) mg/dL Calcium (8.4-10.6) mg/dL Troponin I (0.01-0.04) ng/mL TSH (0.270-4.20) uIU/mL SARS-CoV-2 (PCR) (Negative) Influenza Type A (PCR) (Negative) Influenza Type B (PCR) (Negative) RSV (PCR) (Negative) POC Troponin I (0.01-0.04) ng/ml 08/13/22 08/13/22 08/13/22 Range/Units 18:36 19:30 20:10 WBC (4.50-11.00) K/uL Corrected WBC RBC (4.00-5.20) m/uL Hgb (12.0-16.0) gm/dL Hct (33.0-51.0) % MCV (80-100) fL MCH (26-34) pg MCHC (32-36) gm/dL RDW Coeff of Selam (11.5-15.5) % Plt Count (140-440) K/uL Neut % (Auto) (42.0-72.0) % Lymph % (Auto) (20-44) % Ritchie % (Auto) (0.0-11.0) % Eos % (Auto) (0.0-7.0) % Baso % (Auto) (0.0-3.0) % Neut # (Auto) (1.7-7.0) K/uL Lymph # (Auto) (0.90-2.90) K/uL Ritchie # (Auto) (0.00-0.90) K/UL Eos # (Auto) (0.00-0.50) K/uL Baso # (Auto) (0.00-0.30) K/uL Abs Immat Gran (auto) (0.00-0.30) K/uL Imm/Tot Granulo (auto) % INR (0.91-1.10) APTT (23-33) Seconds D-Dimer Quant (PE/DVT) (0.00-0.50) ug/ml Sodium (135-149) mmol/L Potassium (3.6-5.1) mmol/L Chloride (96-114) mmol/L Carbon Dioxide (20-32) mmol/L BUN (7-30) mg/dL Creatinine (0.5-1.5) mg/dL Estimated Creat Clear Estimated GFR ml/min Glucose (60-115) mg/dL Calcium (8.4-10.6) mg/dL Troponin I (0.01-0.04) ng/mL TSH 3.930 (0.270-4.20) uIU/mL SARS-CoV-2 (PCR) Negative SARS-CoV-2 (Negative) Influenza Type A (PCR) Negative PCR FLU A (Negative) Influenza Type B (PCR) Negative PCR FLU B (Negative) RSV (PCR) Negative PCR RSV (Negative) POC Troponin I 0.89 H (0.01-0.04) ng/ml 08/13/22 08/14/22 08/14/22 Range/Units 21:40 04:35 04:35 WBC 5.22 (4.50-11.00) K/uL Corrected WBC RBC 4.23 (4.00-5.20) m/uL Hgb 12.7 (12.0-16.0) gm/dL Hct 38.3 (33.0-51.0) % MCV 91 (80-100) fL MCH 30 (26-34) pg MCHC 33 (32-36) gm/dL RDW Coeff of Selam (11.5-15.5) % Plt Count 164 (140-440) K/uL Neut % (Auto) (42.0-72.0) % Lymph % (Auto) (20-44) % Ritchie % (Auto) (0.0-11.0) % Eos % (Auto) (0.0-7.0) % Baso % (Auto) (0.0-3.0) % Neut # (Auto) (1.7-7.0) K/uL Lymph # (Auto) (0.90-2.90) K/uL Ritchie # (Auto) (0.00-0.90) K/UL Eos # (Auto) (0.00-0.50) K/uL Baso # (Auto) (0.00-0.30) K/uL Abs Immat Gran (auto) (0.00-0.30) K/uL Imm/Tot Granulo (auto) % INR (0.91-1.10) APTT (23-33) Seconds D-Dimer Quant (PE/DVT) (0.00-0.50) ug/ml Sodium (135-149) mmol/L Potassium (3.6-5.1) mmol/L Chloride (96-114) mmol/L Carbon Dioxide (20-32) mmol/L BUN (7-30) mg/dL Creatinine (0.5-1.5) mg/dL Estimated Creat Clear Estimated GFR ml/min Glucose (60-115) mg/dL Calcium (8.4-10.6) mg/dL Troponin I 1.21 H* (0.01-0.04) ng/mL TSH (0.270-4.20) uIU/mL SARS-CoV-2 (PCR) (Negative) Influenza Type A (PCR) (Negative) Influenza Type B (PCR) (Negative) RSV (PCR) (Negative) POC Troponin I 1.42 H (0.01-0.04) ng/ml 08/14/22 08/14/22 08/14/22 Range/Units 04:35 04:37 04:37 WBC (4.50-11.00) K/uL Corrected WBC RBC (4.00-5.20) m/uL Hgb (12.0-16.0) gm/dL Hct (33.0-51.0) % MCV (80-100) fL MCH (26-34) pg MCHC (32-36) gm/dL RDW Coeff of Selam (11.5-15.5) % Plt Count (140-440) K/uL Neut % (Auto) (42.0-72.0) % Lymph % (Auto) (20-44) % Ritchie % (Auto) (0.0-11.0) % Eos % (Auto) (0.0-7.0) % Baso % (Auto) (0.0-3.0) % Neut # (Auto) (1.7-7.0) K/uL Lymph # (Auto) (0.90-2.90) K/uL Ritchie # (Auto) (0.00-0.90) K/UL Eos # (Auto) (0.00-0.50) K/uL Baso # (Auto) (0.00-0.30) K/uL Abs Immat Gran (auto) (0.00-0.30) K/uL Imm/Tot Granulo (auto) % INR 1.08 (0.91-1.10) APTT 91 H (23-33) Seconds D-Dimer Quant (PE/DVT) (0.00-0.50) ug/ml Sodium 143 (135-149) mmol/L Potassium 4.6 (3.6-5.1) mmol/L Chloride 108 (96-114) mmol/L Carbon Dioxide 30 (20-32) mmol/L BUN 19 (7-30) mg/dL Creatinine 0.6 (0.5-1.5) mg/dL Estimated Creat Clear 87.96 Estimated GFR 108 ml/min Glucose 89 (60-115) mg/dL Calcium 8.9 (8.4-10.6) mg/dL Troponin I (0.01-0.04) ng/mL TSH (0.270-4.20) uIU/mL SARS-CoV-2 (PCR) (Negative) Influenza Type A (PCR) (Negative) Influenza Type B (PCR) (Negative) RSV (PCR) (Negative) POC Troponin I (0.01-0.04) ng/ml 08/14/22 08/14/22 Range/Units 10:20 11:30 WBC (4.50-11.00) K/uL Corrected WBC RBC (4.00-5.20) m/uL Hgb (12.0-16.0) gm/dL Hct (33.0-51.0) % MCV (80-100) fL MCH (26-34) pg MCHC (32-36) gm/dL RDW Coeff of Selam (11.5-15.5) % Plt Count (140-440) K/uL Neut % (Auto) (42.0-72.0) % Lymph % (Auto) (20-44) % Ritchie % (Auto) (0.0-11.0) % Eos % (Auto) (0.0-7.0) % Baso % (Auto) (0.0-3.0) % Neut # (Auto) (1.7-7.0) K/uL Lymph # (Auto) (0.90-2.90) K/uL Ritchie # (Auto) (0.00-0.90) K/UL Eos # (Auto) (0.00-0.50) K/uL Baso # (Auto) (0.00-0.30) K/uL Abs Immat Gran (auto) (0.00-0.30) K/uL Imm/Tot Granulo (auto) % INR (0.91-1.10) APTT 49 H (23-33) Seconds D-Dimer Quant (PE/DVT) (0.00-0.50) ug/ml Sodium (135-149) mmol/L Potassium (3.6-5.1) mmol/L Chloride (96-114) mmol/L Carbon Dioxide (20-32) mmol/L BUN (7-30) mg/dL Creatinine (0.5-1.5) mg/dL Estimated Creat Clear Estimated GFR ml/min Glucose (60-115) mg/dL Calcium (8.4-10.6) mg/dL Troponin I 0.47 H* (0.01-0.04) ng/mL TSH (0.270-4.20) uIU/mL SARS-CoV-2 (PCR) (Negative) Influenza Type A (PCR) (Negative) Influenza Type B (PCR) (Negative) RSV (PCR) (Negative) POC Troponin I (0.01-0.04) ng/ml <Makenzie Javed MD - Last Filed: 08/15/22 15:50> Lab Results 08/13/22 08/13/22 08/13/22 Range/Units 18:36 18:36 18:36 WBC 5.56 (4.50-11.00) K/uL Corrected WBC RBC 4.20 (4.00-5.20) m/uL Hgb 12.7 (12.0-16.0) gm/dL Hct 37.8 (33.0-51.0) % MCV 90 (80-100) fL MCH 30 (26-34) pg MCHC 34 (32-36) gm/dL RDW Coeff of Selam 12.0 (11.5-15.5) % Plt Count 186 (140-440) K/uL Neut % (Auto) 61.5 (42.0-72.0) % Lymph % (Auto) 30.4 (20-44) % Ritchie % (Auto) 6.3 (0.0-11.0) % Eos % (Auto) 0.9 (0.0-7.0) % Baso % (Auto) 0.9 (0.0-3.0) % Neut # (Auto) 3.42 (1.7-7.0) K/uL Lymph # (Auto) 1.69 (0.90-2.90) K/uL Ritchie # (Auto) 0.40 (0.00-0.90) K/UL Eos # (Auto) 0.05 (0.00-0.50) K/uL Baso # (Auto) 0.05 (0.00-0.30) K/uL Abs Immat Gran (auto) 0.00 (0.00-0.30) K/uL Imm/Tot Granulo (auto) 0.0 % INR (0.91-1.10) APTT (23-33) Seconds D-Dimer Quant (PE/DVT) (0.00-0.50) ug/ml Sodium 139 (135-149) mmol/L Potassium 4.7 (3.6-5.1) mmol/L Chloride 104 (96-114) mmol/L Carbon Dioxide 31 (20-32) mmol/L BUN 24 (7-30) mg/dL Creatinine 0.6 (0.5-1.5) mg/dL Estimated Creat Clear 87.96 Estimated GFR 108 ml/min Glucose 112 (60-115) mg/dL Calcium 9.2 (8.4-10.6) mg/dL Troponin I 0.26 H* (0.01-0.04) ng/mL TSH (0.270-4.20) uIU/mL SARS-CoV-2 (PCR) (Negative) Influenza Type A (PCR) (Negative) Influenza Type B (PCR) (Negative) RSV (PCR) (Negative) POC Troponin I 0.20 H (0.01-0.04) ng/ml 08/13/22 08/13/22 08/13/22 Range/Units 18:36 18:36 18:36 WBC Cancelled (4.50-11.00) K/uL Corrected WBC Cancelled RBC Cancelled (4.00-5.20) m/uL Hgb Cancelled (12.0-16.0) gm/dL Hct Cancelled (33.0-51.0) % MCV Cancelled (80-100) fL MCH Cancelled (26-34) pg MCHC Cancelled (32-36) gm/dL RDW Coeff of Selam Cancelled (11.5-15.5) % Plt Count Cancelled (140-440) K/uL Neut % (Auto) Cancelled (42.0-72.0) % Lymph % (Auto) Cancelled (20-44) % Ritchie % (Auto) Cancelled (0.0-11.0) % Eos % (Auto) Cancelled (0.0-7.0) % Baso % (Auto) Cancelled (0.0-3.0) % Neut # (Auto) Cancelled (1.7-7.0) K/uL Lymph # (Auto) Cancelled (0.90-2.90) K/uL Ritchie # (Auto) Cancelled (0.00-0.90) K/UL Eos # (Auto) Cancelled (0.00-0.50) K/uL Baso # (Auto) Cancelled (0.00-0.30) K/uL Abs Immat Gran (auto) Cancelled (0.00-0.30) K/uL Imm/Tot Granulo (auto) Cancelled % INR 0.97 0.98 (0.91-1.10) APTT 31 (23-33) Seconds D-Dimer Quant (PE/DVT) 0.32 (0.00-0.50) ug/ml Sodium (135-149) mmol/L Potassium (3.6-5.1) mmol/L Chloride (96-114) mmol/L Carbon Dioxide (20-32) mmol/L BUN (7-30) mg/dL Creatinine (0.5-1.5) mg/dL Estimated Creat Clear Estimated GFR ml/min Glucose (60-115) mg/dL Calcium (8.4-10.6) mg/dL Troponin I (0.01-0.04) ng/mL TSH (0.270-4.20) uIU/mL SARS-CoV-2 (PCR) (Negative) Influenza Type A (PCR) (Negative) Influenza Type B (PCR) (Negative) RSV (PCR) (Negative) POC Troponin I (0.01-0.04) ng/ml 08/13/22 08/13/22 08/13/22 Range/Units 18:36 19:30 20:10 WBC (4.50-11.00) K/uL Corrected WBC RBC (4.00-5.20) m/uL Hgb (12.0-16.0) gm/dL Hct (33.0-51.0) % MCV (80-100) fL MCH (26-34) pg MCHC (32-36) gm/dL RDW Coeff of Selam (11.5-15.5) % Plt Count (140-440) K/uL Neut % (Auto) (42.0-72.0) % Lymph % (Auto) (20-44) % Ritchie % (Auto) (0.0-11.0) % Eos % (Auto) (0.0-7.0) % Baso % (Auto) (0.0-3.0) % Neut # (Auto) (1.7-7.0) K/uL Lymph # (Auto) (0.90-2.90) K/uL Ritchie # (Auto) (0.00-0.90) K/UL Eos # (Auto) (0.00-0.50) K/uL Baso # (Auto) (0.00-0.30) K/uL Abs Immat Gran (auto) (0.00-0.30) K/uL Imm/Tot Granulo (auto) % INR (0.91-1.10) APTT (23-33) Seconds D-Dimer Quant (PE/DVT) (0.00-0.50) ug/ml Sodium (135-149) mmol/L Potassium (3.6-5.1) mmol/L Chloride (96-114) mmol/L Carbon Dioxide (20-32) mmol/L BUN (7-30) mg/dL Creatinine (0.5-1.5) mg/dL Estimated Creat Clear Estimated GFR ml/min Glucose (60-115) mg/dL Calcium (8.4-10.6) mg/dL Troponin I (0.01-0.04) ng/mL TSH 3.930 (0.270-4.20) uIU/mL SARS-CoV-2 (PCR) Negative SARS-CoV-2 (Negative) Influenza Type A (PCR) Negative PCR FLU A (Negative) Influenza Type B (PCR) Negative PCR FLU B (Negative) RSV (PCR) Negative PCR RSV (Negative) POC Troponin I 0.89 H (0.01-0.04) ng/ml 08/13/22 08/14/22 08/14/22 Range/Units 21:40 04:35 04:35 WBC 5.22 (4.50-11.00) K/uL Corrected WBC RBC 4.23 (4.00-5.20) m/uL Hgb 12.7 (12.0-16.0) gm/dL Hct 38.3 (33.0-51.0) % MCV 91 (80-100) fL MCH 30 (26-34) pg MCHC 33 (32-36) gm/dL RDW Coeff of Selam (11.5-15.5) % Plt Count 164 (140-440) K/uL Neut % (Auto) (42.0-72.0) % Lymph % (Auto) (20-44) % Ritchie % (Auto) (0.0-11.0) % Eos % (Auto) (0.0-7.0) % Baso % (Auto) (0.0-3.0) % Neut # (Auto) (1.7-7.0) K/uL Lymph # (Auto) (0.90-2.90) K/uL Ritchie # (Auto) (0.00-0.90) K/UL Eos # (Auto) (0.00-0.50) K/uL Baso # (Auto) (0.00-0.30) K/uL Abs Immat Gran (auto) (0.00-0.30) K/uL Imm/Tot Granulo (auto) % INR (0.91-1.10) APTT (23-33) Seconds D-Dimer Quant (PE/DVT) (0.00-0.50) ug/ml Sodium (135-149) mmol/L Potassium (3.6-5.1) mmol/L Chloride (96-114) mmol/L Carbon Dioxide (20-32) mmol/L BUN (7-30) mg/dL Creatinine (0.5-1.5) mg/dL Estimated Creat Clear Estimated GFR ml/min Glucose (60-115) mg/dL Calcium (8.4-10.6) mg/dL Troponin I 1.21 H* (0.01-0.04) ng/mL TSH (0.270-4.20) uIU/mL SARS-CoV-2 (PCR) (Negative) Influenza Type A (PCR) (Negative) Influenza Type B (PCR) (Negative) RSV (PCR) (Negative) POC Troponin I 1.42 H (0.01-0.04) ng/ml 08/14/22 08/14/22 08/14/22 Range/Units 04:35 04:37 04:37 WBC (4.50-11.00) K/uL Corrected WBC RBC (4.00-5.20) m/uL Hgb (12.0-16.0) gm/dL Hct (33.0-51.0) % MCV (80-100) fL MCH (26-34) pg MCHC (32-36) gm/dL RDW Coeff of Selam (11.5-15.5) % Plt Count (140-440) K/uL Neut % (Auto) (42.0-72.0) % Lymph % (Auto) (20-44) % Ritchie % (Auto) (0.0-11.0) % Eos % (Auto) (0.0-7.0) % Baso % (Auto) (0.0-3.0) % Neut # (Auto) (1.7-7.0) K/uL Lymph # (Auto) (0.90-2.90) K/uL Ritchie # (Auto) (0.00-0.90) K/UL Eos # (Auto) (0.00-0.50) K/uL Baso # (Auto) (0.00-0.30) K/uL Abs Immat Gran (auto) (0.00-0.30) K/uL Imm/Tot Granulo (auto) % INR 1.08 (0.91-1.10) APTT 91 H (23-33) Seconds D-Dimer Quant (PE/DVT) (0.00-0.50) ug/ml Sodium 143 (135-149) mmol/L Potassium 4.6 (3.6-5.1) mmol/L Chloride 108 (96-114) mmol/L Carbon Dioxide 30 (20-32) mmol/L BUN 19 (7-30) mg/dL Creatinine 0.6 (0.5-1.5) mg/dL Estimated Creat Clear 87.96 Estimated GFR 108 ml/min Glucose 89 (60-115) mg/dL Calcium 8.9 (8.4-10.6) mg/dL Troponin I (0.01-0.04) ng/mL TSH (0.270-4.20) uIU/mL SARS-CoV-2 (PCR) (Negative) Influenza Type A (PCR) (Negative) Influenza Type B (PCR) (Negative) RSV (PCR) (Negative) POC Troponin I (0.01-0.04) ng/ml 08/14/22 08/14/22 Range/Units 10:20 11:30 WBC (4.50-11.00) K/uL Corrected WBC RBC (4.00-5.20) m/uL Hgb (12.0-16.0) gm/dL Hct (33.0-51.0) % MCV (80-100) fL MCH (26-34) pg MCHC (32-36) gm/dL RDW Coeff of Selam (11.5-15.5) % Plt Count (140-440) K/uL Neut % (Auto) (42.0-72.0) % Lymph % (Auto) (20-44) % Ritchie % (Auto) (0.0-11.0) % Eos % (Auto) (0.0-7.0) % Baso % (Auto) (0.0-3.0) % Neut # (Auto) (1.7-7.0) K/uL Lymph # (Auto) (0.90-2.90) K/uL Ritchie # (Auto) (0.00-0.90) K/UL Eos # (Auto) (0.00-0.50) K/uL Baso # (Auto) (0.00-0.30) K/uL Abs Immat Gran (auto) (0.00-0.30) K/uL Imm/Tot Granulo (auto) % INR (0.91-1.10) APTT 49 H (23-33) Seconds D-Dimer Quant (PE/DVT) (0.00-0.50) ug/ml Sodium (135-149) mmol/L Potassium (3.6-5.1) mmol/L Chloride (96-114) mmol/L Carbon Dioxide (20-32) mmol/L BUN (7-30) mg/dL Creatinine (0.5-1.5) mg/dL Estimated Creat Clear Estimated GFR ml/min Glucose (60-115) mg/dL Calcium (8.4-10.6) mg/dL Troponin I 0.47 H* (0.01-0.04) ng/mL TSH (0.270-4.20) uIU/mL SARS-CoV-2 (PCR) (Negative) Influenza Type A (PCR) (Negative) Influenza Type B (PCR) (Negative) RSV (PCR) (Negative) POC Troponin I (0.01-0.04) ng/ml <Frances Drew MD - Last Filed: 08/14/22 16:30> ECG Data Attestation: I personally reviewed and interpreted this ECG as follows: (see above) <Jesus Bazan MD - Last Filed: 08/14/22 01:06> Critical Care Time Critical Care Time Critical Care Time: Yes Attestation: The patient required my highest level preparedness to intervene emergently and I personally spent this critical care time directly and personally managing the patient. This critical care time included: Obtaining a history; Examining the patient; Pulse oximetry; Ordering and reviewing of studies; Arranging urgent treatment with development of a management plan; Evaluation of patients response to treatment; Frequent reassessment discussions with other providers. This critical care time was performed to assess and manage the high probability of imminent life-threatening deterioration that could result in multiorgan failure. It was exclusive of separate billable procedures and treating other patients and teaching time. <Jesus Bazan MD - Last Filed: 08/14/22 01:06> Total Critical Care Time in Minutes: 80 <Jesus Bazan MD - Last Filed: 08/14/22 01:06> Discharge Plan Discharge Clinical Impression: Non-STEMI (non-ST elevated myocardial infarction) <Jesus Bazan MD - Last Filed: 08/14/22 01:06> Patient Disposition: Admitted As Inpatient <Jesus Bazan MD - Last Filed: 08/14/22 01:06>
--- NOTE | 2022-08-13 18:23 | CRLHL7_ITS ---
For Patients: As a result of the Century Cures Act, medical imaging exams and procedure reports are released immediately into your electronic medical record. You may view this report before your referring provider. If you have questions, please contact your health care provider. INDICATION: Chest pain. TECHNIQUE: Chest 1 views. COMPARISON: None. FINDINGS: Lungs: Normal lung volume. No consolidation. The tracheobronchial tree and hilar structures are unremarkable. Pleura: No pleural effusion or pneumothorax. Heart and Mediastinum: Normal heart size. The great vessels of the thorax are unremarkable. Bones: No acute displaced osseous process. Linear high attenuation focus overlies the left manuel abdomen which may be external to the patient. IMPRESSION: No consolidation. Dictated by Jesus Forrest MD @ 08/13/2022 7:23:30 PM (Electronically Signed)
[2022-08-13 19:00] LABS: Chloride* 104 mmol/L (96-114); Potassium* 4.7 mmol/L (3.6-5.1); Sodium* 139 mmol/L (135-149)
[2022-08-13 19:02] LABS: Creatinine* 0.6 mg/dL (0.5-1.5); Est. Creatinine Clearance* 87.96; Estimated Glomerular Filt Rate 108 ml/min
[2022-08-13 19:03] LABS: Blood Urea Nitrogen* 24 mg/dL (7-30); Calcium* 9.2 mg/dL (8.4-10.6); Carbon Dioxide* 31 mmol/L (20-32); Glucose* 112 mg/dL (60-115)
[2022-08-13 19:18] LABS: Hemoglobin* 12.7 gm/dL (12.0-16.0)
[2022-08-13 19:26] LABS: Troponin I* 0.26 ng/mL (0.01-0.04)
[2022-08-13 20:03] LABS: Basophils Absolute Auto 0.05 K/uL (0.00-0.30); Basophils Percent Auto 0.9 % (0.0-3.0); Eosinophils Absolute Auto 0.05 K/uL (0.00-0.50); Eosinophils Percent Auto 0.9 % (0.0-7.0); Hematocrit 37.8 % (33.0-51.0); Lymphocytes Absolute Auto 1.69 K/uL (0.90-2.90); Lymphocytes Percent Auto 30.4 % (20-44); Mean Corpuscular HGB Conc 34 gm/dL (32-36); Mean Corpuscular Hemoglobin 30 pg (26-34); Mean Corpuscular Volume 90 fL (80-100); Monocytes Percent Auto 6.3 % (0.0-11.0); Neutrophils Absolute Auto 3.42 K/uL (1.7-7.0); Neutrophils Percent Auto 61.5 % (42.0-72.0); Platelet Count* 186 K/uL (140-440); White Blood Count* 5.56 K/uL (4.50-11.00)
[2022-08-13 20:12] LABS: PCR FLU A Negative PCR FLU A (Negative); PCR FLU B Negative PCR FLU B (Negative); PCR RSV Negative PCR RSV (Negative)
[2022-08-13 20:19] LABS: SARS PCR* Negative SARS-CoV-2 (Negative)
[2022-08-13 20:21] LABS: Slide Review Reflex No
[2022-08-13 20:23] LABS: Troponin, Point-of-Care* 0.89 ng/ml (0.01-0.04)
[2022-08-13] MEDS: NITROGLYCERIN 0.4 MG TAB.SUBL SUBLINGUAL ×2 (20:26→20:34)
[2022-08-13] MEDS: 0.9 % SODIUM CHLORIDE 500 ML 500 ML IV (20:26)
[2022-08-13 20:28] LABS: INR 0.97 (0.91-1.10); Prothrombin Time 13.5 Seconds
[2022-08-13] MEDS: HEPARIN 5,000 UNIT/0.5 ML INJ 3000 UNIT IVP (20:40)
[2022-08-13] MEDS: HEPARIN 25,000 UNIT/500 ML BAG 12 UNIT IV (20:41)
[2022-08-13] MEDS: ASPIRIN 81 MG TAB.CHEW 324 MG PO (20:45)
--- NOTE | 2022-08-13 20:57 | ED.NURSE ---
Heparin infusion paused at MD direction. Ordered heparin bolus was already given and infusion was started at 2040 hours. MD aware.
[2022-08-13 21:05] LABS: D Dimer Quantitative* 0.32 ug/ml (0.00-0.50)
[2022-08-13 22:01] LABS: Troponin, Point-of-Care* 1.42 ng/ml (0.01-0.04)
[2022-08-13] MEDS: ATORVASTATIN CALCIUM 40 MG TABLET 80 MG PO (22:26)
--- NOTE | 2022-08-13 22:30 | ED.NURSE ---
At MD direction, heparin drip restarted.
[2022-08-13 22:39] LABS: INR 0.98 (0.91-1.10); Prothrombin Time 13.5 Seconds
[2022-08-13 22:41] LABS: Partial Thromboplastin Time* 31 Seconds (23-33)
--- NOTE | 2022-08-13 23:33 | ED.NURSE ---
[facility] no beds available
--- NOTE | 2022-08-13 23:57 | ED.NURSE ---
pt. states right side chest of 2. comfortable at this time. normal sinus.
[2022-08-14] VITALS (50 sets, daily range): BP systolic 100–139; BP diastolic 65–94; PULSE 50–77; RESP 14–18; TEMP 36.1–36.9; O2SAT 95–100; BMI 19.3
--- NOTE | 2022-08-14 03:17 | ED.NURSE ---
pt. up to bathroom with standby assistance. rates chest pain 09/23. normal sinus on tele. heparin gtt 600units/hr, 12cc/hr.
--- NOTE | 2022-08-14 04:35 | ED.NURSE ---
lab here to draw blood. pt. denies chest pain at this time. sinus nicolette on manager cardiac cath. heparin gtt infusing.
[2022-08-14 04:45] LABS: Hematocrit 38.3 % (33.0-51.0); Hemoglobin* 12.7 gm/dL (12.0-16.0); Mean Corpuscular HGB Conc 33 gm/dL (32-36); Mean Corpuscular Hemoglobin 30 pg (26-34); Mean Corpuscular Volume 91 fL (80-100); Platelet Count* 164 K/uL (140-440); Red Blood Count 4.23 m/uL (4.00-5.20); White Blood Count* 5.22 K/uL (4.50-11.00)
[2022-08-14 04:47] LABS: Slide Review Reflex No
[2022-08-14 04:58] LABS: Chloride* 108 mmol/L (96-114)
[2022-08-14 04:59] LABS: Potassium* 4.6 mmol/L (3.6-5.1); Sodium* 143 mmol/L (135-149)
[2022-08-14 05:01] LABS: Carbon Dioxide* 30 mmol/L (20-32)
[2022-08-14 05:02] LABS: Blood Urea Nitrogen* 19 mg/dL (7-30); Calcium* 8.9 mg/dL (8.4-10.6); Glucose* 89 mg/dL (60-115)
[2022-08-14 05:04] LABS: Creatinine* 0.6 mg/dL (0.5-1.5); Est. Creatinine Clearance* 87.96; Estimated Glomerular Filt Rate 108 ml/min
[2022-08-14 05:09] LABS: INR 1.08 (0.91-1.10); Prothrombin Time 14.6 Seconds
[2022-08-14 05:15] LABS: Partial Thromboplastin Time* 91 Seconds (23-33)
--- NOTE | 2022-08-14 05:15 | ED.NURSE ---
Addendum entered by Aislinn Ferrer RN 08/14/22 05:22: witnessed this stop. Original Note: ptt was 91. per protocol, stop heparin infusion for 30 minutes.
[2022-08-14 05:16] LABS: Troponin I* 1.21 ng/mL (0.01-0.04)
--- NOTE | 2022-08-14 05:48 | ED.NURSE ---
Addendum entered by Aislinn Ferrer RN 08/14/22 05:50: witnessed restart. Original Note: restarted heparin per protocol running at 9cc/hr or 450units/hr.
[2022-08-14 11:01] LABS: Troponin I* 0.47 ng/mL (0.01-0.04)
[2022-08-14] MEDS: ACETAMINOPHEN 500 MG TABLET 1000 MG PO (11:31)
[2022-08-14] MEDS: NITROGLYCERIN/DEXTROSE 25,000 MCG/250 ML BOTTLE 3 MCG IVPB (11:38)
--- NOTE | 2022-08-14 11:45 | ED.NURSE ---
complains that her headache is 10/10 and chest feels 1/10. has started iv nitro at 5 mcg/mn. did place 500 ml of ns at 25 ml/hr as a carry fluid. heparin at 450 units\hr. does state she has hx of migraines in the past. was here. has been up to br to void.
--- NOTE | 2022-08-14 11:49 | ED.NURSE ---
dr mckay informed of trop of 0.47. did eat oatmeal, milk and toast.
--- NOTE | 2022-08-14 11:55 | ED.NURSE ---
report was called to beth mehta. will go to [facility].
--- NOTE | 2022-08-14 12:11 | P.IMHP_ITS ---
Hospitalist- H&P: HPI History of Present Illness Date Seen: 08/14/22 Chief complaint: Ill Narrative: Torrie Houser is a 52 year old female presenting for evaluation of NSTEMI. The patient presented to ED yesterday for evaluation of chest pain. She developed chest pain while she was walking outside. Associated symptoms included left arm tingling/numbness and sob. She currently continues to endorse headache, dull left sided chest pain, nausea and vomiting. She denies abdominal pain. In he ED CXR showed no acute findings. EKG with nonspecific TW changes. Troponin 0.26->1.2->0.47. In the ED she was given aspirin, statin, and started on heparin +nitro infusion. Her case was discussed with cardiology; multiple unsuccessful attempts made to transfer to tertiary hospital PMHX ?thyroid dysfunction/hypothyroidism PSugHx C cection Fam Hx Father w/CAD Soc Hx see below Review of Systems Status of ROS: Reports: 10 or more systems reviewed and unremarkable except as noted in History and below [facility] Medical History (Updated 08/14/22 @ 01:18 by Nabeel Brito RN) Encounter for well woman exam No significant past medical history Surgical History (Updated 08/14/22 @ 01:18 by Nabeel Brito RN) No significant past surgical history Social History Highest level of school completed/degree received: Bachelor's degree Smoking Status: Never smoker How often do you have a drink containing alcohol: 2-3 times a week How many standard drinks containing alcohol do you have on a typical day: 1 or 2 How often do you have six or more drinks on one occasion: Never AUDIT-C Alcohol total score: 3 Non-prescribed substance use: denies use Caffeine: Yes (DAILY IN AM) service: No Meds Home Medications and Allergies Home Medications Medication Instructions Recorded Confirmed Type No Known Home Medications 08/13/22 08/13/22 History Allergies Allergy/AdvReac Type Severity Reaction Status Date / Time penicillin V Allergy Severe Rash Verified 05/31/22 16:08 amoxicillin Allergy Mild Hives Verified 05/31/22 16:08 Exam Narrative: Exam Narrative: Gen: NAD HEENT: NCAT EOMI MMM CV: Bradycardic s1 s2 Lungs: CTAB Abd: soft, nt, nd Neuro: AOX3, CN intact nonfocal screening exam MSK: decreased muscle mass Psych:flat affect Skin: warm, dry no rash on face Const: Vital Signs, click to edit/add: Vital Signs - 24 hr 08/13/22 18:00 08/13/22 18:23 08/13/22 18:05 Temperature 97.8 F Pulse Rate 63 Pulse Rate [Pulse Oximeter] 63 Respiratory Rate 16 Blood Pressure 135/82 Blood Pressure [Le ft Upper Arm] 135/82 Pulse Oximetry 97 98 97 Oxygen Delivery Me thod Room Air 08/13/22 18:06 08/13/22 18:30 08/13/22 19:11 Temperature Pulse Rate 63 62 55 L Pulse Rate [Pulse Oximeter] Respiratory Rate Blood Pressure Blood Pressure [Le ft Upper Arm] Pulse Oximetry 98 99 97 Oxygen Delivery Me thod 08/13/22 19:12 08/13/22 19:30 08/13/22 19:31 Temperature Pulse Rate 60 73 74 Pulse Rate [Pulse Oximeter] Respiratory Rate Blood Pressure 126/81 135/98 H Blood Pressure [Le ft Upper Arm] Pulse Oximetry 95 97 97 Oxygen Delivery Me thod 08/13/22 19:32 08/13/22 20:00 08/13/22 20:01 Temperature Pulse Rate 65 79 75 Pulse Rate [Pulse Oximeter] Respiratory Rate Blood Pressure 148/88 H Blood Pressure [Le ft Upper Arm] Pulse Oximetry 98 98 98 Oxygen Delivery Me thod 08/13/22 20:27 08/13/22 20:30 08/13/22 20:31 Temperature Pulse Rate 63 75 77 Pulse Rate [Pulse Oximeter] Respiratory Rate Blood Pressure 156/92 H 124/77 Blood Pressure [Le ft Upper Arm] Pulse Oximetry 98 96 96 Oxygen Delivery Me thod 08/13/22 20:41 08/13/22 20:51 08/13/22 21:00 Temperature Pulse Rate 74 63 63 Pulse Rate [Pulse Oximeter] Respiratory Rate Blood Pressure 128/76 128/75 Blood Pressure [Le ft Upper Arm] Pulse Oximetry 96 97 98 Oxygen Delivery Me thod 08/13/22 21:01 08/13/22 21:02 08/13/22 21:11 Temperature Pulse Rate 61 60 58 L Pulse Rate [Pulse Oximeter] Respiratory Rate Blood Pressure 124/85 112/71 Blood Pressure [Le ft Upper Arm] Pulse Oximetry 97 97 98 Oxygen Delivery Me thod 08/13/22 21:30 08/13/22 21:31 08/13/22 21:32 Temperature Pulse Rate 57 L 66 63 Pulse Rate [Pulse Oximeter] Respiratory Rate Blood Pressure 112/69 Blood Pressure [Le ft Upper Arm] Pulse Oximetry 97 96 96 Oxygen Delivery Me thod 08/13/22 22:00 08/13/22 22:01 08/13/22 22:02 Temperature Pulse Rate 58 L 75 57 L Pulse Rate [Pulse Oximeter] Respiratory Rate Blood Pressure 116/75 Blood Pressure [Le ft Upper Arm] Pulse Oximetry 96 97 97 Oxygen Delivery Me thod 08/13/22 22:30 08/13/22 22:31 08/13/22 23:01 Temperature Pulse Rate 61 61 64 Pulse Rate [Pulse Oximeter] Respiratory Rate 18 Blood Pressure 124/74 123/74 Blood Pressure [Le ft Upper Arm] Pulse Oximetry 97 97 98 Oxygen Delivery Me thod 08/13/22 23:31 08/14/22 00:01 08/14/22 00:31 Temperature Pulse Rate 54 L 57 L 55 L Pulse Rate [Pulse Oximeter] Respiratory Rate 16 16 16 Blood Pressure 116/71 123/75 130/80 Blood Pressure [Le ft Upper Arm] Pulse Oximetry 97 97 97 Oxygen Delivery Me thod 08/14/22 01:01 08/14/22 01:31 08/14/22 02:01 Temperature Pulse Rate 67 67 54 L Pulse Rate [Pulse Oximeter] Respiratory Rate 16 16 16 Blood Pressure 115/69 117/83 124/76 Blood Pressure [Le ft Upper Arm] Pulse Oximetry 96 98 97 Oxygen Delivery Me thod 08/14/22 02:31 08/14/22 03:01 08/14/22 03:31 Temperature Pulse Rate 73 66 63 Pulse Rate [Pulse Oximeter] Respiratory Rate 16 16 18 Blood Pressure 115/77 131/67 130/79 Blood Pressure [Le ft Upper Arm] Pulse Oximetry 97 100 98 Oxygen Delivery Me thod 08/14/22 04:01 08/14/22 04:31 08/14/22 05:01 Temperature Pulse Rate 57 L 73 56 L Pulse Rate [Pulse Oximeter] Respiratory Rate 18 16 18 Blood Pressure 122/78 114/68 130/83 Blood Pressure [Le ft Upper Arm] Pulse Oximetry 97 96 98 Oxygen Delivery Me thod 08/14/22 05:26 08/14/22 06:01 08/14/22 07:00 Temperature Pulse Rate 70 59 L Pulse Rate [Pulse Oximeter] 58 L Respiratory Rate 18 18 Blood Pressure 127/74 Blood Pressure [Le ft Upper Arm] 130/83 Pulse Oximetry 98 100 99 Oxygen Delivery Me od Room Air 08/14/22 07:01 08/14/22 08:00 08/14/22 08:01 Temperature Pulse Rate 65 67 65 Pulse Rate [Pulse Oximeter] Respiratory Rate Blood Pressure 127/81 128/77 Blood Pressure [Le ft Upper Arm] Pulse Oximetry 98 100 100 Oxygen Delivery Me thod 08/14/22 09:00 08/14/22 09:01 Temperature Pulse Rate 58 L 62 Pulse Rate [Pulse Oximeter] Respiratory Rate Blood Pressure 127/85 Blood Pressure [Le ft Upper Arm] Pulse Oximetry 98 98 [facility] - [facility]&P: Result Labs Labs: Short CBC 08/13/22 08/13/22 08/14/22 Range/Units 18:36 18:36 04:35 WBC 5.56 Cancelled 5.22 (4.50-11.00) K/uL Hgb 12.7 Cancelled 12.7 (12.0-16.0) gm/dL Hct 37.8 Cancelled 38.3 (33.0-51.0) % Plt Count 186 Cancelled 164 (140-440) K/uL BMP 08/13/22 08/14/22 18:36 04:35 Sodium 139 143 Potassium 4.7 4.6 Chloride 104 108 Carbon Dioxide 31 30 BUN 24 19 Creatinine 0.6 0.6 Glucose 112 89 Calcium 9.2 8.9 Cardiac Enzymes 08/13/22 08/14/22 08/14/22 Range/Units 18:36 04:35 10:20 Troponin I 0.26 H* 1.21 H* 0.47 H* (0.01-0.04) ng/mL Assessment and Plan Assessment and plan (1) Non-STEMI (non-ST elevated myocardial infarction): Status: Acute Plan Torrie Houser is a 52 year old female presenting for evaluation of NSTEMI. The patient presented to ED yesterday for evaluation of chest pain. She developed chest pain while she was walking outside. Associated symptoms included left arm tingling/numbness and sob. She currently continues to endorse headache, dull left sided chest pain, nausea and vomiting. In he ED CXR showed no acute findings. EKG with nonspecific TW changes. Troponin 0.26->1.2->0.47. In the ED she was given aspirin, statin, and started on heparin +nitro infusion. Her case was discussed with cardiology; multiple unsuccessful attempts made to transfer to tertiary hospital 1. NSTEMI 2. Nausea, vomiting 3. Headache 4. Sinus Bradycardia Plan -admit to CCU -tele -echo -npo -continue heparin infusion -continue nitro infusion -antiemetics -morphine prn -aspirin given in ED -BB held due to bradycardia -check lipid panel and a1c -check TSh Code-Full code DVT ppx-on heparin Dispo-will need transfer to tertiary hospital for coronary angiogram
[2022-08-14 12:13] LABS: Partial Thromboplastin Time* 49 Seconds (23-33)
[2022-08-14] MEDS: ONDANSETRON 2 MG/ML inj 4 MG IVP (12:22)
[2022-08-14] MEDS: MORPHINE 4 MG/ML INJ IVP (12:25)
[2022-08-14] MEDS: 5 % DEXTROSE IN LAC RINGER'S 1,000 ML 75 ML IV (12:25)
[2022-08-14] MEDS: PANTOPRAZOLE SODIUM 40 MG INJ IVP (13:18)
[2022-08-14] MEDS: diphenhydrAMINE 50 MG/ML inj 25 MG IVP ×2 (14:05→21:02)
--- NOTE | 2022-08-14 21:54 | PC.NURSE ---
end of shift. pt has been very pleasant. no chest pain she has had a ROSS 2-02/21 she got Iv Benadryl for this. she is up with SBA to BR. she is eating, drinking and voiding. she will be NPO at midnight with ice chips. she ate supper. tried to transfer her but sadly [facility] where no beds. IV is patent. IV fluids and heparin drip is infusing. heparin is AT 450 units. waiting for PTT from lab. tele shows NSR. was in to talk to pt. echo was done.
[2022-08-14 22:25] LABS: Partial Thromboplastin Time* 47 Seconds (23-33)
[2022-08-15] VITALS (7 sets, daily range): BP systolic 124–144; BP diastolic 77–93; PULSE 50–68; RESP 16; TEMP 36.1–36.6; O2SAT 97–100
[2022-08-15 02:00] LABS: Partial Thromboplastin Time* 48 Seconds (23-33)
[2022-08-15] MEDS: 5 % DEXTROSE IN LAC RINGER'S 1,000 ML 75 ML IV ×2 (02:12→15:34)
--- NOTE | 2022-08-15 07:04 | PC.NURSE ---
: Pt ptt lab was 48, thus rate has remained the same since at 450units(9ml)/hr. Denied sob/pain,etc all symptoms resolved but has mild headache. Other vSS on ra, tele nsr. Has been npo per possible transfer for coronary angiogram.
[2022-08-15] MEDS: ACETAMINOPHEN 325 MG TABLET 650 MG PO ×2 (07:47→14:04)
[2022-08-15 08:43] LABS: Basophils Absolute Auto 0.02 K/uL (0.00-0.30); Basophils Percent Auto 0.4 % (0.0-3.0); Eosinophils Absolute Auto 0.06 K/uL (0.00-0.50); Eosinophils Percent Auto 1.1 % (0.0-7.0); Hematocrit 39.3 % (33.0-51.0); Hemoglobin* 13.1 gm/dL (12.0-16.0); Lymphocytes Absolute Auto 1.71 K/uL (0.90-2.90); Lymphocytes Percent Auto 30.6 % (20-44); Mean Corpuscular HGB Conc 33 gm/dL (32-36); Mean Corpuscular Hemoglobin 30 pg (26-34); Mean Corpuscular Volume 90 fL (80-100); Monocytes Percent Auto 7.3 % (0.0-11.0); Neutrophils Absolute Auto 3.38 K/uL (1.7-7.0); Neutrophils Percent Auto 60.6 % (42.0-72.0); Platelet Count* 150 K/uL (140-440); RDW Coefficient of Variation % 11.9 % (11.5-15.5); Red Blood Count 4.35 m/uL (4.00-5.20); Slide Review Reflex No; White Blood Count* 5.58 K/uL (4.50-11.00)
[2022-08-15 08:57] LABS: Chloride* 107 mmol/L (96-114); Potassium* 4.7 mmol/L (3.6-5.1); Sodium* 140 mmol/L (135-149)
[2022-08-15 08:59] LABS: INR 1.03 (0.91-1.10); Prothrombin Time 14.1 Seconds
[2022-08-15 09:00] LABS: Blood Urea Nitrogen* 11 mg/dL (7-30); Carbon Dioxide* 31 mmol/L (20-32); Cholesterol* 169 mg/dL (90-199); Creatinine* 0.6 mg/dL (0.5-1.5); Est. Creatinine Clearance* 85.66; Estimated Glomerular Filt Rate 108 ml/min; Partial Thromboplastin Time* 46 Seconds (23-33)
[2022-08-15 09:01] LABS: Glucose* 101 mg/dL (60-115); HDL Cholesterol* 61 mg/dL (>=50); LDL Cholesterol Calculated 90 mg/dL (<100); Triglycerides* 92 mg/dL (40-149)
[2022-08-15 09:23] LABS: Troponin I* 0.24 ng/mL (0.01-0.04)
--- NOTE | 2022-08-15 09:27 | PC.NURSE ---
Critical Value-- Notified by lab of critical troponin 0.24. Improved from previous result.
--- NOTE | 2022-08-15 11:14 | PC.NURSE ---
Late entry- Critical Value-- Notified by lab of a critical troponin of 0.24 which is down from previous troponin. Dr Becerra was notified.
--- NOTE | 2022-08-15 16:02 | PC.NURSE ---
Pt has been on heparin gtt at 9ml/450 units per hour. D51/2 NS @ 75cc/hr. Ntg gtt discontinued yesterday on Evening shift. Pt eupneic, calm and cooperative, UAL. Mild headache 5 out of 10. Pt initially NPO. Treated with prn Tylenol/ ice pack to site this shift and pain rated her pain 2 out of 10 afterwards. Torrie is awaiting transfer to facility with higher level of care d/to need for coronary angiogram. Pt advanced to CL diet. Pt had visits with her friend Patricia. Layo supportive at bedside. Adequate I & 0. TELE indicates sinus nicolette to NSR. Pt states her headache returned this afternoon, now 6 our of 10, one time dose of tylenol 1000mg provided. Report to Elissa Simmons RN for evening shift.
[2022-08-15] MEDS: ASPIRIN 81 MG TAB.CHEW 162 MG PO (16:43)
--- NOTE | 2022-08-15 17:15 | P.IMPN_ITS ---
Progress Note: A&P Assessment and plan (1) Non-STEMI (non-ST elevated myocardial infarction): Problem details: With patient's clinical presentation of ischemic chest pain, elevated troponins and abnormal echocardiogram I believe angiogram is warranted. Attempts to arrange this at tertiary care hospitals in this region have been unsuccessful so far. Will be aggressive with management of her non STEMI with anticoagulation switching from heparin to Lovenox now, antiplatelet therapy, high-dose statin therapy. She has had some bradycardia so her beta-trupti has been held. Will manage conservatively pending a plan for intervention. Status: Acute Plan Continue in hospital pending ongoing monitoring of ischemia, management of acute coronary syndrome and better plan of care for intervention Time Spent With Patient Total time spent: Total time spent today is 70 minutes in critical care evaluation and management Subjective Date Seen: 08/15/22 Interval history: 52-year-old female seen in followup of non ST elevation VT. patient is had recent history of some chest heaviness with ambulation. Got worse in the last 1-2 days and she came to the hospital for evaluation. She was found to have an elevation in her troponins. Echocardiogram showed new wall motion abnormality. Attempts to transfer her to tertiary care for angiogram have been unsuccessful so far. Overnight she reports she is generally feeling well except she has a headache. She occasionally has a mild discomfort in her chest or back but no clear anginal symptoms. She has not had anything resembling the fairly classic angina that she had when she presented to the hospital which included chest heaviness, dyspnea and and symptoms radiating to both arms. Her nitroglycerin drip has been discontinued without an obvious change in her symptoms. During the day today she was generally doing well and so her diet has been advanced. She has some persistent headache but no other troublesome symptoms. Notably she has no cardiac risk factors. No family history of premature coronary disease door father had stents placed in his early 80s. She does not smoke. She does not have diabetes, hyperlipidemia, hypertension, obesity, history of bleeding or clotting disorders. Exam Narrative: Exam Narrative: She is alert, pleasant and in no distress. This morning she is anxious and upset about her circumstances. Her mood and affect have improved during the day. Head is nontender. Eyes normal. Oropharynx normal. Neck is supple without mass or adenopathy. Respirations are clear to auscultation. Cardiovascular: S1, S2, regular rate and rhythm. No murmur gallop or rub. Abdomen: Bowel sounds active. Abdomen is soft without tenderness or mass. Extremities without edema. Good peripheral pulses. No rash. Const: Vital Signs, click to edit/add: Vital Signs - 24 hr 08/14/22 19:29 08/14/22 19:38 08/14/22 23:28 Temperature 98.4 F Pulse Rate 55 L Pulse Rate [Apical ] Respiratory Rate 18 18 Blood Pressure [Le ft Arm] 139/88 Pulse Oximetry 98 Oxygen Delivery Me thod Room Air 08/14/22 23:36 08/15/22 02:24 08/15/22 07:20 Temperature 98 F 97.8 F Pulse Rate 66 Pulse Rate [Apical ] 51 L 50 L Respiratory Rate 16 16 Blood Pressure [Le ft Arm] 113/75 139/77 Pulse Oximetry 97 97 Oxygen Delivery Me thod 08/15/22 07:20 08/15/22 11:00 08/15/22 16:02 Temperature 97.9 F 97.2 F L Pulse Rate 65 Pulse Rate [Apical ] 59 L 62 Respiratory Rate 16 16 Blood Pressure [Le ft Arm] 130/93 H 133/87 Pulse Oximetry 100 100 Oxygen Delivery Me thod Room Air Room Air 08/15/22 16:17 Temperature 97.5 F L Pulse Rate Pulse Rate [Apical ] 56 L Respiratory Rate 16 Blood Pressure [Le ft Arm] 130/83 Pulse Oximetry 98 Oxygen Delivery Me thod Room Air Documenting provider has reviewed patient's vital signs: yes Labs Labs: Laboratory Results - last 24 hr 08/14/22 08/15/22 08/15/22 19:26 01:35 08:35 WBC RBC Hgb Hct MCV MCH MCHC RDW Coeff of Selam Plt Count Neut % (Auto) Lymph % (Auto) Hardeman % (Auto) Eos % (Auto) Baso % (Auto) Neut # (Auto) Lymph # (Auto) Hardeman # (Auto) Eos # (Auto) Baso # (Auto) Abs Immat Gran (auto) Imm/Tot Granulo (auto) INR 1.03 APTT 47 H 48 H 46 H Sodium Potassium Chloride Carbon Dioxide BUN Creatinine Estimated Creat Clear Estimated GFR Glucose Hemoglobin A1c Calcium Troponin I Triglycerides Cholesterol LDL Cholesterol, Calc HDL Cholesterol TSH 08/15/22 08/15/22 08/15/22 08:35 08:35 08:35 WBC 5.58 RBC 4.35 Hgb 13.1 Hct 39.3 MCV 90 MCH 30 MCHC 33 RDW Coeff of Selam 11.9 Plt Count 150 Neut % (Auto) 60.6 Lymph % (Auto) 30.6 Hardeman % (Auto) 7.3 Eos % (Auto) 1.1 Baso % (Auto) 0.4 Neut # (Auto) 3.38 Lymph # (Auto) 1.71 Hardeman # (Auto) 0.40 Eos # (Auto) 0.06 Baso # (Auto) 0.02 Abs Immat Gran (auto) 0.00 Imm/Tot Granulo (auto) 0.0 INR APTT Sodium 140 Potassium 4.7 Chloride 107 Carbon Dioxide 31 BUN 11 Creatinine 0.6 Estimated Creat Clear 85.66 Estimated GFR 108 Glucose 101 Hemoglobin A1c Calcium 9.0 Troponin I 0.24 H* Triglycerides 92 Cholesterol 169 LDL Cholesterol, Calc 90 HDL Cholesterol 61 TSH 3.990 08/15/22 08:35 WBC RBC Hgb Hct MCV MCH MCHC RDW Coeff of Selam Plt Count Neut % (Auto) Lymph % (Auto) Hardeman % (Auto) Eos % (Auto) Baso % (Auto) Neut # (Auto) Lymph # (Auto) Hardeman # (Auto) Eos # (Auto) Baso # (Auto) Abs Immat Gran (auto) Imm/Tot Granulo (auto) INR APTT Sodium Potassium Chloride Carbon Dioxide BUN Creatinine Estimated Creat Clear Estimated GFR Glucose Hemoglobin A1c 5.10 Calcium Troponin I Triglycerides Cholesterol LDL Cholesterol, Calc HDL Cholesterol TSH
--- NOTE | 2022-08-15 17:54 | PC.NURSE ---
Shift Summary 15-19: Patient pleasant and cooperative. Advanced to regular diet and tolerating well. C/o headache rating / earlier, was given PRN acetaminophen by previous RN. Lights dimmed, door shut and ice pack placed under head/neck, patient reported some relief after interventions. Ambulated around unit with staff standing by, denied chest pain/tightness or SOB while ambulating. Vitals stable, continues on room air. Saline locked per MD order.
[2022-08-15] MEDS: ENOXAPARIN 60 MG/0.6 ML INJ SUBCUT (18:34)
[2022-08-15] MEDS: ASPIRIN/ACETAMINOPHEN/CAFFEINE 1 TABLET 1 TAB PO (20:22)
[2022-08-15] MEDS: ROSUVASTATIN CALCIUM 10 MG TABLET 20 MG PO (20:24)
[2022-08-16 03:50] VITALS: BP 138/72; PULSE 61; RESP 14; TEMP 36.3; O2SAT 96
--- NOTE | 2022-08-16 04:35 | PC.NURSE ---
PATIENT PLEASANT AND COOPERATIVE, UP IND WITH STEADY GAIT, DECLINING CP SOB AND ARM PAIN, TELE SHOWING NSR/SB, INTIALLY REPORTING A HEADACHE 8/10 PRN EXCEDRIN GIVEN WITH RELIEF PATIENT HAS SINCE DECLINED A HEADACHE.
[2022-08-16] MEDS: ENOXAPARIN 60 MG/0.6 ML INJ SUBCUT (06:25)
[2022-08-16 08:00] VITALS: BP 115/89; PULSE 59; PULSE 70; RESP 16; TEMP 36.8; O2SAT 97
[2022-08-16 08:14] LABS: Troponin I* 0.11 ng/mL (0.01-0.04)
[2022-08-16] MEDS: ASPIRIN 81 MG TAB.CHEW PO (09:18)
--- NOTE | 2022-08-16 09:51 | PC.NURSE ---
Pending transfer-- Pleasant and cooperative, alert and oriented patient. VSS and pt is afebrile. SPO2 maintained >94% on RA. She c/o a mild headache which she rated 1 out of 10 and some slight chest tightness on left side which she has had since arrival. She declined intervention for that. Nurse to nurse report given to Alicia Burkett. All questions answered. Pt transfer pending EMS arrival. Report to AMADOR Banegas.
--- NOTE | 2022-08-16 10:15 | PM.DS1 ---
DS: Providers Provider Date Seen: 08/16/22 Date of admission: 08/16/22 08:15 Primary care physician: Selina Mccullough MD Admitting Clinician: Nadia Nieves MD Attending Physician on discharge: Gato Becerra MD Date of Discharge: 08/16/22 DS: Diagnosis Discharge Diagnosis (1) Non-STEMI (non-ST elevated myocardial infarction): Status: Acute Problem details: 52-year-old previously healthy female admitted to the hospital with chest pain typical for ischemic heart disease. Evaluation at time of admission showed elevation of the troponins up to a troponin of 1.2. Electrocardiogram was unremarkable. Echocardiogram showed wall motion abnormalities in the inferior septum. This was not typical for stress cardiomyopathy. Treatment for coronary artery disease was initiated with IV nitroglycerin, heparin, statin, aspirin. Her symptoms resolved relatively quickly. Her troponins have trended down to 0.11 today. Nitroglycerin and heparin were discontinued though she was put on therapeutic Lovenox anticipating ongoing problems with transfer. Daily attempts at transferred to a hospital with Cardiology and slab lifting engineer capabilities were unsuccessful until this morning when she was accepted at [facility] in [facility]. DS: Summary Hospital Course Hospital Course: 52-year-old previously healthy female admitted to the hospital with chest pain typical for ischemic heart disease. Evaluation at time of admission showed elevation of the troponins up to a troponin of 1.2. Electrocardiogram was unremarkable. Echocardiogram showed wall motion abnormalities in the inferior septum. This was not typical for stress cardiomyopathy. She has no known risk factors for coronary disease, thrombosis or bleeding. Treatment for coronary artery disease was initiated with IV nitroglycerin, heparin, statin, aspirin. Her symptoms resolved relatively quickly. Her troponins have trended down to 0.11 today. Nitroglycerin and heparin were discontinued though she was put on therapeutic Lovenox anticipating ongoing problems with transfer. Daily attempts at transferred to a hospital with Cardiology and slab lifting engineer capabilities were unsuccessful until this morning when she was accepted at [facility] in [facility]. Status at Discharge Functional status at discharge: independent ambulation Overall status at discharge: patient is back to baseline Time Spent with Patient Time attestation: Total time spent providing and/or coordinating discharge services: Time spent: Greater than 30 minutes Exam Narrative: Exam Narrative: She is alert and appears in no distress. She is ambulating independently. Not currently having ischemic symptoms. Respirations are clear to auscultation. Cardiovascular: S1, S2, regular rate and rhythm. No murmur gallop or rub. Abdomen is soft without tenderness. Extremities without edema. Good peripheral perfusion. Const: Vital Signs, click to edit/add: Vital Signs - 24 hr 08/15/22 11:00 08/15/22 16:02 08/15/22 16:17 Temperature 97.2 F L 97.5 F L Pulse Rate 65 Pulse Rate [Apical ] 62 56 L Respiratory Rate 16 16 Blood Pressure [Le ft Arm] 133/87 130/83 Pulse Oximetry 100 98 Oxygen Delivery Me thod Room Air Room Air 08/15/22 20:00 08/15/22 23:25 08/15/22 23:25 Temperature 97.5 F L 97.0 F L Pulse Rate 68 Pulse Rate [Apical ] 57 L 59 L Respiratory Rate 16 16 Blood Pressure [Le ft Arm] 124/85 144/81 H Pulse Oximetry 100 100 Oxygen Delivery Me thod Room Air Room Air 08/16/22 03:50 08/16/22 08:00 08/16/22 08:00 Temperature 97.3 F L 98.2 F Pulse Rate 59 L Pulse Rate [Apical ] 61 70 Respiratory Rate 14 16 Blood Pressure [Le ft Arm] 138/72 115/89 Pulse Oximetry 96 97 Oxygen Delivery Me thod Room Air Room Air 08/16/22 08:00 Temperature Pulse Rate Pulse Rate [Apical ] 70 Respiratory Rate 16 Blood Pressure [Le ft Arm] Pulse Oximetry Oxygen Delivery Me thod Documenting provider has reviewed patient's vital signs: yes DS: Data Data Completed and Pending Labs on day of discharge: Labs from last 24 hours 08/16/22 06:18 Troponin I 0.11 H* Discharge Plan Discharge Disposition: Xfer Other Date of Admission: 08/16/22 08:15 Attending Provider on Discharge: Jero Becerra Primary Care Provider: Selina Mccullough Discharge Medications: No Action No Known Home Medications Discharge Orders: Discharge Order (Routine); Ordered 08/16/22 Ordered By: Jero Becerra Additional Instructions: Transfer to [facility], for cardiology consultation and possible coronary angiogram. Follow Up Appointments: Selina Mccullough MD [Primary Care Provider] - Forms: [facility] Info Instructions Hospital Course: 52-year-old previously healthy female admitted to the hospital with chest pain typical for ischemic heart disease. Evaluation at time of admission showed elevation of the troponins up to a troponin of 1.2. Electrocardiogram was unremarkable. Echocardiogram showed wall motion abnormalities in the inferior septum. This was not typical for stress cardiomyopathy. She has no known risk factors for coronary disease, thrombosis or bleeding. Treatment for coronary artery disease was initiated with IV nitroglycerin, heparin, statin, aspirin. Her symptoms resolved relatively quickly. Her troponins have trended down to 0.11 today. Nitroglycerin and heparin were discontinued though she was put on therapeutic Lovenox anticipating ongoing problems with transfer. Daily attempts at transferred to a hospital with Cardiology and slab lifting engineer capabilities were unsuccessful until this morning when she was accepted at [facility] in [facility].
[2022-08-16 12:00] VITALS: BP 147/89; PULSE 60; RESP 16; TEMP 36.6; O2SAT 98
== END 2022-08-16 10:40 | disposition short-term general hospital (02) | DRG 282 ==
LOC: ED 08-14 08:28 → MEDSURG 08-14 12:15
PROVIDERS: Family Medicine; Hospitalist; Admitting Provider Family Medicine; Emergency Provider Family Medicine; PCP Obstetrics & Gynecology; Visit Provider Family Medicine
DX: I21.4 Non-ST elevation (NSTEMI) myocardial infarction (principal); R11.2 Nausea with vomiting, unspecified; R51.9 Headache, unspecified; R00.1 Bradycardia, unspecified
CPT/HCPCS: 36415; 71045; 80048; 80061; 83036; 84443; 84484; 85018; 85025; 85027; 85379; 85610; 85730; 87502; 87634; 87635; 93005; 93306; 94761; 99283; 99285; 99291; 99292; G0378; A9270; C9113; J1200; J1644; J1650; J2270; J2405; J7120

== ENCOUNTER 2022-08-16 10:30 | Outpatient (CLI) | payer OTHER, SELFPAY | END 2022-08-16 10:31 | disposition home or self-care (01) | LOC: AMB 09-01 13:25 | PROVIDERS: PCP Obstetrics & Gynecology; Visit Provider Family Medicine | DX: I21.4 Non-ST elevation (NSTEMI) myocardial infarction (principal) | CPT/HCPCS: A0425; A0426 ==

== ENCOUNTER 2024-10-30 10:53 | Outpatient (CLI) | payer OTHER, SELFPAY | END 2024-10-30 10:54 | disposition home or self-care (01) | LOC: AMB 10-31 06:54 | PROVIDERS: PCP Family Medicine; Visit Provider Emergency Medicine | DX: R42 Dizziness and giddiness (principal); R11.0 Nausea | CPT/HCPCS: A0425; A0427 ==

== ENCOUNTER 2024-10-30 11:26 | Emergency (ER) | payer OTHER, SELFPAY ==
[2024-10-30] VITALS (15 sets, daily range): BP systolic 110–137; BP diastolic 71–89; PULSE 54–72; RESP 16; TEMP 36.3; O2SAT 96–99; BMI 20.4
--- OUTSIDE RECORDS SUMMARY | 2024-10-30 11:28 | XMS_ITS | Clinical Summary ---
Author Organization [facility] Address [place], [place] [address] Care Team Providers Care Grinding And Spraying Supervisor Name Role Phone Viki Escobar DO Primary Care Provider [phone] Allergies Active Allergy Reactions Criticality Noted Date Comments Penicillins Rash,Itching 05/30/2011 Medications estradioL (ESTRACE) 0.01% (0.1 mg/g) vaginal creamIndication s:Vaginal atrophy INITIAL dosage range is 2 g daily for one or two weeks, then gradually reduced to MAINTENANCE dosage of 1 g, one to three times a week 42.5 g 3 4 Active Active Problems Problem Noted Date Diagnosed Date Pap smear for cervical cancer screening 08/10/20 24 Overview (08/10/2024): 07/2024 NIL/HPV negative. Plan: Pap/HPV due 07/2029 History of cardiomyopathy 08/27/2022 Overview (08/27/2022): Admitted [facility] for chest pain. Had elevated troponins. Echocardiogram 08/14/22 1.Normal LV size, normal wall thickness, mildly reduced function with estimated EF 45-50% 2. Mid infero-septal hypokinesis. Unusual for a coronary distribution, consider septal varient stress CM vs myocarditis. Transferred to [facility] and had cath 08/17/22 1. Normal coronary arteries. No evidence of dissection. 2. Normal LV function. 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 01/16/2020 Encounters Date Type Department Care Team Description 10/30/2024 Nurse Triage [facility] [address] [facility] [address] Viki Escobar, DO Dizziness 08/10/2024 Telephone [facility] [address] [facility] [address] Viki Escobar, DO Questions 08/03/2024 2:45 PM SUPERVISOR BOILER REPAIR Office Visit [facility] [address] [facility] [address] Viki Escobar, DO Physical (54 year old physical); Shoulder Pain/problem (Left shoulder); Knee Pain/problem (Right knee) 08/02/2024 Travel from Last 3 Months Immunizations Name Administration Dates Next Due AMB Influenza, IIV3 (Age >=3 years)(Flu [facility]) 08/14/2010 Influenza, IIV3 (Age 6-35 mos) 05/27/2013,2011 Influenza, IIV4 06/14/2015,09/11/2014 Influenza,CCIIV4 PRESERV FREE 08/06/2021 Tdap 09/18/2014 Family History Medical History Relation Name Comments Hyperlipidemia Brother 1 Hypertension Brother 1 Sleep apnea Brother 1 Sleep apnea Brother 2 Hyperlipidemia Father Hypertension Father Hyperlipidemia Mother Thyroid Disease Mother Good Health Sister 1 Osteoarthritis Sister 2 Relation Name Status Comments Brother 1 Alive Brother 2 Alive Father Alive Mother Alive Sister 1 Alive Sister 2 Alive Social History Tobacco Use Types Packs/Day Years Used Date Smoking Tobacco: Never Passive Smoke Exposure: Never Smokeless Tobacco: Never Tobacco Cessation:Counseling Given: Yes Alcohol Use Standard Drinks/Week Comments Not Currently 0 (1 standard drink = 0.6 oz pur e alcohol) PHQ-2 Answer Date Recorded PHQ-2 TOTAL SCORE 0 08/03/2024 Social Connections Answer Date Recorded Do you often feel lonely or isolated from those around you? 0 04/27/2024 Alcohol Use Answer Date Recorded How often do you have a drink containing alcohol ? 3 08/21/2022 How many drinks containing a lcohol do you have on a typical day when you are drinking? 0 08/21/2022 How often do you have five or more drinks on one occasion? 0 08/21/2022 Financial Resource Strain Answer Date R ecorded Difficulty of Paying Living Expenses 3 04/27/2024 Difficulty of Paying Living Expenses Not on file 04/27/2024 Food Insecurity Answer Date Recorded Do you worry your food will run out before you are able to buy more? 1 04/27/2024 Transportation Needs Answer Date Record ed Does lack of transportation keep you from medica l appointments? 1 04/27/2024 Does lack of transportation keep you from work, meetings or getting things that you need? 1 04/27/2024 Housing Stability Answer Date Recorded What is your housing situation today? 1 04/27/2024 Utilities Answer Date Recorded Do you have trouble paying f or utilities (for example, heat, electricity, water, phone)? 1 04/27/2024 Comments No Sex and Gender Information Value Date Recorded Sex Assigned at Not on file Legal Sex Female 8:01 AM SUPERVISOR BOILER REPAIR Gender Identity Not on file Sexual Orientation Not on file Obstetrics History Para Term AB IAB SAB Ectopic Multiple Livin g Live Births 2 2 2 2 2 Date Outcome GA Total Labor Labor/2nd/3rd Weight Sex Type Anes PTL Silvana A1 A5 Name Clin Term Living Term Living Last Filed Vital Signs Vital Sign Reading Time Taken Comments Blood Pressure 120/72 08/03/2024 2:59 PM SUPERVISOR BOILER REPAIR Pulse 68 08/03/2024 2:59 PM SUPERVISOR BOILER REPAIR Temperature 36.7 C (98 F) 06/22/2024 7:41 AM CDT Respiratory Rate 16 02/13/2023 2:01 PM CDT Oxygen Saturation 98% 08/03/2024 2:59 PM SUPERVISOR BOILER REPAIR Inhaled Oxygen Concentration - - Weight 50.3 kg (111 lb) 08/03/2024 2:59 PM SUPERVISOR BOILER REPAIR Height 160 cm (5' 3) 08/03/2024 2:59 PM SUPERVISOR BOILER REPAIR Body Mass Index 19.66 08/03/2024 2:59 PM SUPERVISOR BOILER REPAIR Plan of Treatment Health Maintenance Due Date Last Done Comments HIV for age 15-65 1985 Hepatitis C screening for ag e 18-79 1988 Pneumococcal series for age 50+ (1 of 2 - PCV) 1989 Lipids for age 45-75 2015 Zoster (shingles) series for age 50+ (1 of 2) 2020 COVID-19 vaccine series ( season) 2024 08/06/2021, 11/16/2020, 10/19/2020 Influenza for age 50-64 05/15/2024 08/06/20 21, 06/14/2015, 09/11/2014, Additional history exists Tetanus booster 09/18/2024 09/18/2014 Mammogram for age 45-75 07/06/2025 07/06/20 24, 04/01/2021, 03/30/2020 BMI (ht and wt on same day) for age 18+ 08/03/2025 08/03/2024, 02/13/2023, 10/02/2022, Additional history exists Depression screening for age 12+ 08/03/2025 08/03/2024, 10/02/2022, 01/25/2016 Fecal testing sDNA-FIT ([place] guard) for age 45-75 08/10/2027 08/10/2024, 06/15/2021, 06/15/2021 (Completed outside of [facility]) Pap test for age 21-65 08/03/2029 , 11/10/2018, 11/10/2018, Additional history exists Tdap Completed 09/18/2014 Procedures Procedure Name Priority Date/Time Associated Diagnosis Comments SDNA-FIT EXTERNAL (COLOGUARD) Routine 08/10/2024 7:55 AM SUPERVISOR BOILER REPAIR Screening for colon cancer TICKET AGENT THIN PREP PAP AND HPV DNA - AGE 25 AND OVER ([facility]) Routine 08/03/2024 5:05 PM SUPERVISOR BOILER REPAIR Cervical cancer screening TSH WITH REFLEX Routine 08/03/2024 4:17 PM SUPERVISOR BOILER REPAIR Hot flashes XR MAMMO TEMI BILAT SCREEN Routine 07/06/2024 7:38 AM CDT Visit for screening mammogram from Last 3 Months or Most Recently Relevant to Health Maintenance Results * SDNA-FIT EXTERNAL (COLOGUARD) (08/10/2024 7:55 AM SUPERVISOR BOILER REPAIR) NONINV COLON CA DNA+OCC BLD SCRN STL-IMP Negative Negative 08/17/2024 4:14 AM SUPERVISOR BOILER REPAIR [facility] (CLIA #:[id number]) Comment: NEGATIVE TEST RESULT. A negative Cologuard result indicates a low likelihood that a colorectal cancer (CRC) or advanced adenoma (adenomatous polyps with more advanced pre-malignant features) is present. The chance that a person with a negative Cologuard test has a colorectal cancer is less than 1 in 1500 (negative predictive value >99.9%) or has an advanced adenoma is less than 5.3% (negative predictive value 94.7%). These data are based on a prospective cross-sectional study of 10,000 individuals at average risk for colorectal cancer who were screened with both Cologuard and colonoscopy. (Theresa Petersen et al, N Engl J Med 2014;370(14):3193-5761) The normal value (reference range) for this assay is negative. COLOGUARD RE-SCREENING RECOMMENDATION: Periodic colorectal cancer screening is an important part of preventive healthcare for asymptomatic individuals at average risk for colorectal cancer. Following a negative Cologuard result, the [place] [employer] Society and U.S. Multi-Society Task Force screening guidelines recommend a Cologuard re-screening interval of 3 years. References: [place] [employer] Guideline for Colorectal Cancer Screening: https://www.cancer.org/cancer/qxjpp-jssebe-bqmbrf/erwasalyd-abmackbms-kyessae/ac s-rec ommendations.html.; Michael KEARNS, Joey GUZMAN, Samm BartlettK, Colorectal Cancer Screening: Recommendations for Physicians and Patients from the U.S. Multi-Society Task Force on Colorectal Cancer Screening , Am J Gastroenterology 2017; 112:9144-6827. TEST DESCRIPTION: Composite algorithmic analysis of stool DNA-biomarkers with hemoglobin immunoassay. Quantitative values of individual biomarkers are not reportable and are not associated with individual biomarker result reference ranges. Cologuard is intended for colorectal cancer screening of adults of either sex, 45 years or older, who are at average-risk for colorectal cancer (CRC). Cologuard has been approved for use by the U.S. FDA. The performance of Cologuard was established in a cross sectional study of average-risk adults aged 50-84. Cologuard performance in patients ages 45 to 49 years was estimated by sub-group analysis of near-age groups. Colonoscopies performed for a positive result may find as the most clinically significant lesion: colorectal cancer [4.0%], advanced adenoma (including sessile serrated polyps greater than or equal to 1cm diameter) [20%] or non- advanced adenoma [31%]; or no colorectal neoplasia [45%]. These estimates are derived from a prospective cross-sectional screening study of 10,000 individuals at average risk for colorectal cancer who were screened with both Cologuard and colonoscopy. (Theresa Petersen et al, N Engl J Med 2014;370(14):5687-1037.) Cologuard may produce a false negative or false positive result (no colorectal cancer or precancerous polyp present at colonoscopy follow up). A negative Cologuard test result does not guarantee the absence of CRC or advanced adenoma (pre-cancer). The current Cologuard screening interval is every 3 years. ([place] [employer] Society and U.S. Multi-Society Task Force). Cologuard performance data in a 10,000 patient pivotal study using colonoscopy as the reference method can be accessed at the following location: www.[employer]/results. Additional description of the Cologuard test process, warnings and precautions can be found at www.ExentogSmartsheetrd.Interactive Project. Stool specimen (specimen) (Rectum) 08/10/2024 7:55 AM SUPERVISOR BOILER REPAIR 08/11/2024 1:34 PM SUPERVISOR BOILER REPAIR Viki Escobar DO URINE Final Resu lt [facility] (CLIA #:[id number]) [address] [place] [address], * TICKET AGENT THIN PREP PAP AND HPV DNA - AGE 25 AND OVER ([facility]) (08/03/2024 5:05 PM SUPERVISOR BOILER REPAIR) CLINICAL INFORMATION [facility] Comment:None given LMP [facility] Comment:POSTMENOPAUSAL PREV. PAP [facility] Comment:11/10/18, NIL -HPV PREV. BX [facility] Comment:NO SOURCE TICKET AGENT [facility] Comment:Cervix STATEMENT OF ADEQUACY [facility] Comment: Satisfactory for evaluation. Endocervical/transformation zone component present. INTERPRETATION/RESU LT [facility] Comment: Cytology Results: Negative for intraepithelial lesion or malignancy. Atrophic pattern; predominantly parabasal cells COMMENT [facility] Comment: This Pap test has been evaluated with computer assisted technology. TORCH OPERATOR [facility] Comment: SXN, CT(ASCP) CT Screening location: [address] [address] THINPREP TIS PAP ALWAYS MESSAGE [facility] Comment: EXPLANATORY NOTE: The Pap is a screening test for cervical cancer. It is not a diagnostic test and is subject to false negative and false positive results. It is most reliable when a satisfactory sample, regularly obtained, is submitted with relevant clinical findings and history, and when the Pap result is evaluated along with historic and current clinical information. HPV HIGH RISK Not Detected NOT DETECTED [facility] Comment: Not Detected High Risk HPV types (16,18,31,33,35,39,45,51,52, 56,58,59,66,68) were not detected. Other HPV types which cause anogenital lesions may be present. The significance of the other types of HPV in malignant processes has not been established. Methodology: Real Time PCR Other (Other) 08/03/2024 5:0 5 PM SUPERVISOR BOILER REPAIR 08/04/2024 9:54 AM SUPERVISOR BOILER REPAIR Viki Escobar DO PATHOLOGY/CYTOLOGY Final R esult [facility] [[email or web address]] [employer] [address] [address], [employer] [address] * TSH WITH REFLEX (08/03/2024 4:17 PM SUPERVISOR BOILER REPAIR) TSH W/REFLEX TO FT4 2.55 mIU/L [employer] [facility] Comment: Reference Range > or = 20 Years 0.40-4.50 Ranges First trimester 0.26-2.66 Second trimester 0.55-2.73 Third trimester 0.43-2.91 Blood BLOOD SPECIMEN / Unknown 08/03/2024 4:17 PM SUPERVISOR BOILER REPAIR 08/03/2024 4:17 PM SUPERVISOR BOILER REPAIR Viki Escobar DO CHEMISTRY Final Resu lt [employer] [facility] [address] [place] [address], [place] [phone] [facility] [address] [place] [address] * XR MAMMO TEMI BILAT SCREEN (07/06/2024 7:38 AM CDT) Anatomical Region Laterality Modality BREASTS, Breast Left, Breast Right Bilateral Mammography Impressions 07/11/2024 1:44 PM CDT There is no radiographic evidence for malignancy. Recommend annual mammograms. MAMMOGRAM ASSESSMENT: ACR 1 Negative PATIENTS: You will also receive a letter with your examination results in an easy to read format. If you have questions about your results, please contact your referring provider. Narrative 07/11/2024 1:44 PM CDT For Patients: As a result of the Century Cures Act, medical imaging exams and procedure reports are released immediately into your electronic medical record. You may view this report before your referring provider. If you have questions, please contact your health care provider. XR MAMMO TEMI BILAT SCREEN [[id number]] CLINICAL HISTORY: This is an asymptomatic 54 y.o. patient. INDICATION FOR EXAM: Mammogram Screening. TECHNIQUE: CC & MLO views were obtained. This study was evaluated with the assistance of Computer-Aided Detection. Breast Tomosynthesis was used in interpretation. COMPARISON FILM: Yes 04/01/21 Outside Facility 03/30/20 Outside Facility FINDINGS: The breasts are heterogeneously dense, which may obscure small masses. There are no dominant masses, suspicious micro calcifications or areas of architectural distortion. Viki Escobar DO MAMMO Final Resu lt from Last 3 Months or Most Recently Relevant to Health Maintenance Insurance Care Teams Grinding And Spraying Supervisor Relationship Specialty Start Date End Date Viki Escobar DO [address] [place] [address] PCP - General Family Practice 11/13/22
--- OUTSIDE RECORDS SUMMARY | 2024-10-30 11:28 | XMS_ITS | Clinical Summary ---
Author Organization [facility] Address [address] [place] [address] Care Team Providers Care Event Marketing Representative Name Role Phone Unassigned, Pcp Primary Care Provider Unavailabl e Source Comments Patient records contain information from all sites at [facility]. For routine questions regarding patient records, call [phone] during business hours, M-F 8:00 AM - 5:00 PM Central Time. Record requests for emergency care only can be directed to [phone] at any time.[facility] Allergies Active Allergy Reactions Criticality Noted Date Comments Penicillins Hives (Reselect Reaction),Itching,Rash High 07/29/2008 Medications * This document contains information received from the source organization and may not represent a complete record from that organization. No known medications Social History Tobacco Use Types Packs/Day Years Used Date Smoking Tobacco: Never Assessed Humiliation, Afraid, Rape, and Kick questionnair e Answer Date Recorded Within the last year, have y ou been afraid of your partner or ex-partner? No 03/08/2023 Within the last year, have y ou been humiliated or emotionally abused in other ways by your partner or ex-partner? No Within the last year, have y ou been kicked, hit, slapped, or otherwise physically hurt by your partner or ex-partner? No 03/08/2023 Within the last year, have y ou been raped or forced to have any kind of sexual activity by your partner or ex-partner? No 03/08/2023 Overall Financial Resource Strain (CARDIA) Answe r Date Recorded How hard is it for you to pa y for the very basics like food, housing, medical care, and heating? Not very hard 03/08/2023 Exercise Vital Sign Answer Date Recorde d On average, how many days pe r week do you engage in moderate to strenuous exercise (like a brisk walk)? 6 days 03/08/2023 On average, how many minutes do you engage in exercise at this level? 30 min 03/08/2023 Hunger Vital Sign Answer Date Recorded Within the past 12 months, y ou worried that your food would run out before you got the money to buy more. Never true 03/08/20 Within the past 12 months, t he food you bought just didn't last and you didn't have money to get more. Never true 03/08/2023 PRAPARE - Transportation Answer Date Re corded In the past 12 months, has l ack of transportation kept you from medical appointments or from getting medications? No 02/13 In the past 12 months, has l ack of transportation kept you from meetings, work, or from getting things needed for daily living? No 03/08/2023 Nutrition Answer Date Recorded Nutrition: EVOO Fat Source Unknown 03/08 On average, how many serving s of fruits and vegetables do you eat per day (serving size is equal to 1 cup or approximately the size of a tennis ball)? 3-5 03/08/2023 Dental Answer Date Recorded Dental: Regular Dentist Yes 03/08/20 Employment Answer Date Recorded Employment status Employed and actively working without restrictions 03/08/2023 Housing Stability Answer Date Recorded What is your living situation today? 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 Gender Identity Female 03/08/2023 5:47 PM CDT Sexual Orientation Straight 03/08/2023 5: 47 PM CDT Last Filed Vital Signs Vital Sign Reading Time Taken Comments Blood Pressure - - Pulse - - Temperature - - Respiratory Rate - - Oxygen Saturation - - Inhaled Oxygen Concentration - - Weight 47.5 kg (104 lb 11.5 oz) 04/10/2023 9:41 AM CDT Height 160.2 cm (5' 3.07) 04/10/2023 9:41 AM CD T Body Mass Index 18.51 04/10/2023 9:41 AM CDT Plan of Treatment Health Maintenance Due Date Last Done Comments CT Colonography 1970 Cervical/Vaginal Cancer Screening 1970 Cologuard 1970 Colonoscopy 1970 Colorectal Cancer Screening 1970 FIT 1970 HIV Screening 1970 Hepatitis C Screening 1970 Mammogram 1970 Hepatitis B Vaccines (1 of 3 - 19+ 3-dose series) 1989 Pneumococcal vaccine (50+ years) (1 of 1 - PCV) 2020 Zoster Vaccines (1 of 2) 2020 COVID-19 Vaccine (4 - season) 2024 08/06/2021, 11/16/2020, 10/19/2020 Influenza Vaccine (#1) 2024 , 06/14/2015, 09/11/2014, Additional history exists Depression Screening (Annual PHQ-2) 09/14/2024 DTaP,Tdap,and Td Vaccines (2 - Td or Tdap) 09/18/2024 09/18/2014 Fasting Glucose for Diabetes Screening 03/10/2026 03/10/2023 Lipid (Cholesterol) Screening 03/10/2028 03/10/2023 IPV Vaccines Aged Out No longer eligi ble based on patient's age to complete this topic Procedures Procedure Name Priority Date/Time Associated Diagnosis Comments COMPREHENSIVE METABOLIC PANEL, S/P Routine 03/10/2023 11:42 AM CDT Pain Chest Shortness Of Breath Low Blood Pressure Abnormal Echocardiogram LIPID PANEL, S Routine 03/10/2023 11:42 AM CDT Pain Chest Shortness Of Breath Low Blood Pressure Abnormal Echocardiogram from Last 3 Months or Most Recently Relevant to Health Maintenance Results * (ABNORMAL) Lipid Panel (03/10/2023 11:42 AM CDT) Triglycerides 102 mg/dL 03/10/2023 12:56 PM CDT DTL Comment: ----REFERENCE VALUE---- Normal: <150 mg/dL Borderline High: 150-199 mg/dL High: 200-499 mg/dL Very High: > or =500 mg/dL Cholesterol, Total 202(H) mg/dL 2022 12:56 PM CDT DTL Comment: ----REFERENCE VALUE---- Desirable: < 200 mg/dL Borderline High: 200 - 239 mg/dL High: > or = 240 mg/dL Cholesterol, LDL, Calculated 108 mg/dL 03/10/2023 12:56 PM CDT DTL Comment: ----REFERENCE VALUE---- Desirable: <100 mg/dL Above Desirable: 100-129 mg/dL Borderline High: 130-159 mg/dL High: 160-189 mg/dL Very High: >=190 mg/dL ----ADDITIONAL INFORMATION---- LDL cholesterol calculated using the Price/NIH equation. Cholesterol, HDL, S 76 >=50 mg/dL 03/10/2023 12:56 PM CDT DTL Cholesterol, Non-HDL, Calculated 126 mg/dL 03/10/2023 12:56 PM CDT DTL Comment: ----REFERENCE VALUE---- Desirable: <130 mg/dL Above Desirable: 130-159 mg/dL Borderline High: 160-189 mg/dL High: 190-219 mg/dL Very High: > or =220 mg/dL Fasting (8 HR or more) No 03/10/2023 12:23 PM CDT DTL Blood (Blood, Venous) 03/10/2023 11:42 AM CDT 03/10/2023 12:23 PM CDT us Ibeth Bailey APRN, C.N.P., D.N.P. LAB BLOO D ADD-ON Final Result [facility] [address] [place] [address], [facility] [address] [place] [address] * (ABNORMAL) Comprehensive Metabolic Panel (03/10/2023 11:42 AM CDT) Pathologist [facility] Potassium, S 4.4 3.6 - 5.2 mmol/L 03/10/2023 12:56 PM CDT DTL Sodium, S 141 135 - 145 mmol/L 03/10/2023 12:56 PM CDT DTL Chloride, S 100 98 - 107 mmol/L 03/10/2023 12:56 PM CDT DTL Bicarbonate, S 32(H) 22 - 29 mmol/L 03/10/2023 12:56 PM CDT DTL Anion Gap 9 7 - 15 03/10/2023 12:56 PM CDT DTL BUN (Blood Urea Nitrogen), S 18 6 - 21 mg/dL 03/10/2023 12:56 PM CDT DTL Creatinine 0.86 0.59 - 1.04 mg/dL 03/10/2023 12:56 PM CDT DTL Estimated GFR (eGFR) 81 >=60 mL/min/BS A 03/10/2023 12:56 PM CDT DTL Comment: Estimated GFR calculated using the 2020 CKD_EPI creatinine equation. Calcium, Total, S 9.7 8.6 - 10.0 mg/dL 03/10/2023 12:56 PM CDT DTL Glucose, S 96 70 - 140 mg/dL 03/10/2023 12:56 PM CDT DTL Protein, Total, S 7.3 6.3 - 7.9 g/dL 03/10/2023 12:56 PM CDT DTL Albumin, S 4.7 3.5 - 5.0 g/dL 03/10/2023 12:56 PM CDT DTL Aspartate Aminotransferase (AST), S 27 8 - 43 U/L 03/10/2023 12:56 PM CDT DTL Alkaline Phosphatase, S 67 35 - 104 U/L 03/10/2023 12:56 PM CDT DTL Alanine Aminotransferase (ALT), S 17 7 - 45 U/L 03/10/2023 12:56 PM CDT DTL Bilirubin, Total, S 0.4 <=1.2 mg/dL 03/10/2023 12:56 PM CDT DTL Blood (Blood, Venous) 03/10/2023 11:42 AM CDT 03/10/2023 12:23 PM CDT Ibeth Bailey APRN, C.N.P., D.N.P. LAB BLOO D ADD-ON Final Result [facility] [address] [place] [address], [place] DTL [facility] [address] [place] [address] from Last 3 Months or Most Recently Relevant to Health Maintenance Insurance [facility] Care Teams Event Marketing Representative Relationship Specialty Start Date End Date Unassigned, Pcp PCP - General Family Medicine 09/02/20
--- NOTE | 2024-10-30 11:52 | ED.GENADULT ---
HPI - General Adult General Chief complaint: Dizziness/Vertigo Stated complaint: Dizziness Time Seen by Provider: 10/30/24 11:27 Source: patient Mode of arrival: ambulatory Limitations: no limitations History of Present Illness HPI narrative: 54-year-old female coming in today complaining of dizziness going on day 3. She had an episode on Thursday when she got off of an elevator she felt lightheaded and the room was moving around her. Lasted a couple seconds. Then on Thursday started happening more frequently, has happened several times today. Today she had an episode where she felt very nauseated but did not vomit. She complains of pressure across her forehead. Patient states that she did have cold symptoms with congestion last week but those symptoms have resolved. She denies fevers or chills. She does have ringing in her ears but this is not new. She denies any double or blurry vision. She is not short of breath. She denies chest pain. She denies palpitations. She denies difficulty walking. The episodes of dizziness last a few seconds, perhaps a minute was the longest 1. She denies diarrhea or abdominal pain. She notices that it is worse when she moves her head up and down and that is when she feels the episodes come. If she sits still or closes her eyes, she does not feel dizzy. Patient received Zofran in the ambulance she feels much better already. Related Data Previous Rx's ?Medication ?Instructions ?Recorded meclizine 25 mg tablet 25 mg PO BID PRN #10 tabs 10/30/24 Allergies Allergy/AdvReac Type Severity Reaction Status Date / Time penicillin V Allergy Severe Rash Verified 10/30/24 11:33 amoxicillin Allergy Mild Hives Verified 10/30/24 11:33 Review of Systems Status of ROS: Reports: 10 or more systems reviewed and unremarkable except as noted in History and below [facility] Medical History No significant past medical history Encounter for well woman exam ?Z01.419 - Encounter for gynecological examination (general) (routine) without abnormal findings (ICD-10) Surgical History No significant past surgical history Social History Highest level of school completed/degree received: Bachelor's degree Smoking Status: Never smoker How often do you have a drink containing alcohol: 2-3 times a week How many standard drinks containing alcohol do you have on a typical day: 1 or 2 How often do you have six or more drinks on one occasion: Never AUDIT-C Alcohol total score: 3 Non-prescribed substance use: denies use Caffeine: Yes (DAILY IN AM) service: No Exam Narrative: Exam Narrative: Well-nourished well-developed patient in no acute distress. Alert and oriented. Answers questions appropriately. Mood and affect are appropriate. Thoughts are goal oriented and rational. No tangential or magical thinking noted. Patient speaks in full sentences without needing to catch her breath. Speech is not slurred or pressure. No word-finding difficulty. HEENT: Normocephalic atraumatic. Pupils are equally round reactive to light. Extraocular muscles are intact. Conjunctivae are moist without any icterus noted. Moist mucous membranes. Posterior pharynx is normal. Neck is soft. TMs are clear bilaterally. Cardiovascular: Heart is regular rate and rhythm S1 and S2 are present without any murmurs. Lungs: Clear to auscultation bilaterally no wheezes rhonchi or rales are appreciated. Patient takes deep breaths without any discomfort. Abdomen: Soft and nontender nondistended with normal bowel sounds. Extremities: Bilateral lower extremities are without edema. Skin: Well perfused without any obvious rashes. Strength is 5/5 of the upper and lower extremities. Cranial nerves 3-12 are normal. [id number] is normal. There is no nystagmus either horizontally or vertically. Gait is normal. Hallpike maneuver is negative. There is no elicited vertiginous symptoms. Unremarkable HINTS exam. Const: Vital Signs, click to edit/add: Vital Signs - 24 hr 10/30/24 11:33 10/30/24 11:41 10/30/24 11:45 Temperature 97.4 F L Pulse Rate 71 63 Pulse Rate [Pulse Oximeter] 67 Pulse Rate [orthos tatic lying] Pulse Rate [orthos tatic sitting] Pulse Rate [orthos tatic standing] Respiratory Rate 16 Blood Pressure Blood Pressure [Ri ght Upper Arm] 137/89 Blood Pressure [or thostatic lying] Blood Pressure [or thostatic sitting] Blood Pressure [or thostatic standing ] Pulse Oximetry 99 96 98 Oxygen Delivery Me thod Room Air 10/30/24 12:02 10/30/24 12:23 10/30/24 12:24 Temperature Pulse Rate 61 72 Pulse Rate [Pulse Oximeter] Pulse Rate [orthos tatic lying] Pulse Rate [orthos tatic sitting] Pulse Rate [orthos tatic standing] Respiratory Rate Blood Pressure 110/78 123/77 Blood Pressure [Ri ght Upper Arm] Blood Pressure [or thostatic lying] Blood Pressure [or thostatic sitting] Blood Pressure [or thostatic standing ] Pulse Oximetry 96 97 Oxygen Delivery Me thod 10/30/24 12:25 10/30/24 12:25 10/30/24 12:26 Temperature Pulse Rate 66 67 Pulse Rate [Pulse Oximeter] Pulse Rate [orthos tatic lying] 61 Pulse Rate [orthos tatic sitting] 72 Pulse Rate [orthos tatic standing] 69 Respiratory Rate Blood Pressure 127/73 135/75 Blood Pressure [Ri ght Upper Arm] Blood Pressure [or thostatic lying] 123/77 Blood Pressure [or thostatic sitting] 127/73 Blood Pressure [or thostatic standing ] 135/75 Pulse Oximetry 97 98 Oxygen Delivery Me thod 10/30/24 12:37 10/30/24 12:45 10/30/24 13:00 Temperature Pulse Rate 55 L 56 L 54 L Pulse Rate [Pulse Oximeter] Pulse Rate [orthos tatic lying] Pulse Rate [orthos tatic sitting] Pulse Rate [orthos tatic standing] Respiratory Rate Blood Pressure Blood Pressure [Ri ght Upper Arm] Blood Pressure [or thostatic lying] Blood Pressure [or thostatic sitting] Blood Pressure [or thostatic standing ] Pulse Oximetry 97 96 96 Oxygen Delivery Me thod 10/30/24 13:01 10/30/24 13:15 Temperature Pulse Rate 58 L 58 L Pulse Rate [Pulse Oximeter] Pulse Rate [orthos tatic lying] Pulse Rate [orthos tatic sitting] Pulse Rate [orthos tatic standing] Respiratory Rate Blood Pressure 117/73 Blood Pressure [Ri ght Upper Arm] Blood Pressure [or thostatic lying] Blood Pressure [or thostatic sitting] Blood Pressure [or thostatic standing ] Pulse Oximetry 97 96 Oxygen Delivery Me thod Course Course ED Course: Differential diagnosis includes viral labyrinthitis, vestibular migraine, vasovagal episode, BPPV. Less likely vestibular neuronitis, CVA, cardiac arrhythmia. Patient has no evidence of orthostatic hypotension. EKG, read by me, shows normal sinus rhythm, sinus arrhythmia with pulse of 66. CBCs unremarkable. Normal chemistries and magnesium. Normal troponin. UA is normal. TSH is normal. Vital Signs Vital signs: Initial Vital Signs Temperature 97.4 F L 10/30/24 11:33 Temperature Source Temporal Artery Scan 10/30/24 11:33 Pulse Rate 67 10/30/24 11:33 Respiratory Rate 16 10/30/24 11:33 Blood Pressure 137/89 10/30/24 11:33 Blood Pressure Mean 105 10/30/24 11:33 Blood Pressure Position High-Fowlers 10/30/24 11:33 Pulse Oximetry 99 10/30/24 11:33 Oxygen Delivery Method Room Air 10/30/24 11:33 Vital Signs Temperature 97.4 F L 10/30/24 11:33 Pulse Rate 67 10/30/24 11:33 Respiratory Rate 16 10/30/24 11:33 Blood Pressure 137/89 10/30/24 11:33 Pulse Oximetry 99 10/30/24 11:33 Oxygen Delivery Method Room Air 10/30/24 11:33 Temperature 97.4 F L 10/30/24 11:33 Pulse Rate 58 L 10/30/24 13:15 Respiratory Rate 16 10/30/24 11:33 Blood Pressure 117/73 10/30/24 13:01 Pulse Oximetry 96 10/30/24 13:15 Oxygen Delivery Method Room Air 10/30/24 11:33 Medications Administered Medications: Discontinued Medications Generic Name Dose Route Start Last Admin Trade Name Freq PRN Reason Stop Dose Admin Sodium Chloride 1,000 mls @ 1,000 mls/hr 10/30/24 12:00 10/30/24 13:00 0.9 % Sodium Chloride 1000 Ml IV 10/30/24 12:59 Infused .Q1H DIAMOND Infusion Meclizine HCl 25 mg 10/30/24 11:50 10/30/24 12:12 Meclizine Hcl 25 Mg Tablet PO 10/30/24 11:51 25 mg ONCE ONE Administration Medical Decision Making MDM Narrative Medical decision making narrative: 54-year-old female with vertigo, most likely diagnosis take with viral labyrinthitis vs BPPV. We discussed symptomatic treatment with meclizine, hydration, being careful with movement, attempting Raz maneuver. Lab Data Lab results reviewed: Yes I reviewed the patient's lab results Labs: Lab Results 10/30/24 10/30/24 Range/Units 12:06 12:30 WBC 7.11 (4.50-11.00) K/uL RBC 4.30 (4.00-5.20) m/uL Hgb 12.7 (12.0-16.0) gm/dL Hct 38.4 (33.0-51.0) % MCV 89 (80-100) fL MCH 30 (26-34) pg MCHC 33 (32-36) gm/dL RDW Coeff of Selam 12.1 (11.5-15.5) % Plt Count 179 (140-440) K/uL Neut % (Auto) 71.1 (42.0-72.0) % Lymph % (Auto) 20.7 (20-44) % [place] % (Auto) 7.0 (0.0-11.0) % Eos % (Auto) 0.7 (0.0-7.0) % Baso % (Auto) 0.4 (0.0-3.0) % Neut # (Auto) 5.05 (1.7-7.0) K/uL Lymph # (Auto) 1.47 (0.90-2.90) K/uL [place] # (Auto) 0.50 (0.00-0.90) K/UL Eos # (Auto) 0.05 (0.00-0.50) K/uL Baso # (Auto) 0.03 (0.00-0.30) K/uL Abs Immat Gran (auto) 0.01 (0.00-0.30) K/uL Imm/Tot Granulo (auto) 0.1 % Sodium 138 (135-149) mmol/L Potassium 3.9 (3.6-5.1) mmol/L Chloride 104 (96-114) mmol/L Carbon Dioxide 25 (20-32) mmol/L Anion Gap 9 (7-15) mEq/L BUN 22 (7-30) mg/dL Creatinine 0.7 (0.5-1.5) mg/dL Estimated Creat Clear 75.66 Estimated GFR 103 ml/min Glucose 99 (60-115) mg/dL Calcium 8.9 (8.4-10.6) mg/dL Magnesium 2.1 (1.5-2.6) mg/dL Troponin I < 0.01 L (0.01-0.04) ng/mL TSH 2.320 (0.270-4.20) uIU/mL Urine Color Yellow (Yellow) Urine Appearance Clear (Clear) Urine pH 7.0 (5.0-8.5) Ur Specific [place] 1.010 (1.000-1.030) Urine Protein Negative (Negative) Urine Glucose (UA) Negative (Negative) Urine Ketones Negative (Negative) Urine Blood Negative (Negative) Urine Nitrite Negative (Negative) Urine Bilirubin Negative (Negative) Urine Urobilinogen 0.2 (0.2-1.0) Ur Leukocyte Esterase Negative (Negative) Urine RBC 0-2 (0-2) Urine WBC 0-2 (0-5) Ur Squamous Epith Cells None (None-Few) Urine Bacteria None (None) ECG Data Attestation: I personally reviewed and interpreted this ECG as follows: Discharge Plan Discharge Clinical Impression: Vertigo Patient Disposition: Home, Self-Care Condition: Stable Instructions: Vertigo (ED) Additional Instructions: Can try doing the Raz maneuver at home. Take meclizine as needed. Stay well hydrated. Get plenty of rest. Return to the emergency department if dizziness becomes constant. Follow-up with your primary care provider as needed. Prescriptions: New meclizine 25 mg tablet 25 mg PO BID PRNQty: 10 0RF Follow Up/Referrals: Provider,Not a Local [Non-Staff] - Stand Alone Forms: [employer] Info Instructions
--- OUTSIDE RECORDS SUMMARY | 2024-10-30 11:58 | XMS_ITS | Clinical Summary ---
Author Organization [facility] Address [address] [place] [address] Care Team Providers Care Remedial Masseur Name Role Phone Unassigned, Pcp Primary Care Provider Unavailabl e Source Comments Patient records contain information from all sites at [facility]. For routine questions regarding patient records, call [phone] during business hours, M-F 8:00 AM - 5:00 PM Central Time. Record requests for emergency care only can be directed to [phone] at any time.[facility] Allergies Active Allergy Reactions Criticality Noted Date [...] your living situation today? 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 LAB BLOO D ADD-ON Final Result [facility] [address] [place] [address], [place] DTL [facility] [address] [place] [address] from Last 3 Months or Most Recently Relevant to Health Maintenance Insurance [facility] Care Teams Remedial Masseur Relationship Specialty Start Date End Date Unassigned, Pcp PCP - General Family Medicine 09/02/20
--- OUTSIDE RECORDS SUMMARY | 2024-10-30 11:58 | XMS_ITS | Clinical Summary ---
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 Had elevated troponins. Echocardiogram 08/14/22 1.Normal LV size, normal wall thickness, mildly reduced function with estimated EF 45-50% 2. Mid infero-septal hypokinesis. Unusual for a coronary distribution, consider septal varient stress CM vs myocarditis. Transferred to [facility] and had cath 08/17/22 1. Normal coronary arteries. No evidence of dissection. 2. Normal LV function. 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 01/16/2020 Encounters Date Type Department Care Team Description 10/30/2024 Nurse Triage [facility] [address] [facility] [address] Viki Escobar, DO Dizziness 08/10/2024 Telephone [facility] [address] [facility] [address] Viki Escobar, DO Questions 08/03/2024 2:45 PM ADULT EDUCATION MANAGER Office Visit [facility] [address] [facility] [address] Viki Escobar, DO Physical (54 year old [...] on file Legal Sex Female 8:01 AM ADULT EDUCATION MANAGER Gender Identity Not on file Sexual Orientation [...] Comments Blood Pressure 120/72 08/03/2024 2:59 PM ADULT EDUCATION MANAGER Pulse 68 08/03/2024 2:59 PM ADULT EDUCATION MANAGER Temperature 36.7 C (98 F) 06/22/2024 7:41 AM CDT Respiratory Rate 16 02/13/2023 2:01 PM CDT Oxygen Saturation 98% 08/03/2024 2:59 PM ADULT EDUCATION MANAGER Inhaled Oxygen Concentration - - Weight 50.3 kg (111 lb) 08/03/2024 2:59 PM ADULT EDUCATION MANAGER Height 160 cm (5' 3) 08/03/2024 2:59 PM ADULT EDUCATION MANAGER Body Mass Index 19.66 08/03/2024 2:59 PM ADULT EDUCATION MANAGER Plan of Treatment Health Maintenance Due Date [...] 08/03/2025 08/03/2024, 10/02/2022, 01/25/2016 Fecal testing sDNA-FIT ([place]) for age 45-75 08/10/2027 08/10/2024, 06/15/2021, 06/15/2021 (Completed outside of [facility]) Pap test for age 21-65 08/03/2029 , 11/10/2018, 11/10/2018, Additional history exists Tdap Completed 09/18/2014 Procedures Procedure Name Priority Date/Time Associated Diagnosis Comments SDNA-FIT EXTERNAL (COLOGUARD) Routine 08/10/2024 7:55 AM ADULT EDUCATION MANAGER Screening for colon cancer DISABILITY PROGRAM NAVIGATOR THIN PREP PAP AND HPV DNA - AGE 25 AND OVER ([facility]) Routine 08/03/2024 5:05 PM ADULT EDUCATION MANAGER Cervical cancer screening TSH WITH REFLEX Routine 08/03/2024 4:17 PM ADULT EDUCATION MANAGER Hot flashes XR MAMMO TEMI BILAT SCREEN Routine 07/06/2024 7:38 AM CDT Visit for screening mammogram from Last 3 Months or Most Recently Relevant to Health Maintenance Results * SDNA-FIT EXTERNAL (COLOGUARD) (08/10/2024 7:55 AM ADULT EDUCATION MANAGER) NONINV COLON CA DNA+OCC BLD SCRN STL-IMP Negative Negative 08/17/2024 4:14 AM ADULT EDUCATION MANAGER [employer] (CLIA #:[id number]) Comment: NEGATIVE TEST RESULT. A negative Cologuard [...] Petersen et al, N Engl J Med 2014;370(14):5080-8838) The normal value (reference range) for this assay is negative. COLOGUARD RE-SCREENING RECOMMENDATION: Periodic colorectal cancer screening is an important part of preventive healthcare for asymptomatic individuals at average risk for colorectal cancer. Following a negative Cologuard result, the [place] [employer] Society and U.S. Multi-Society Task Force screening guidelines recommend a Cologuard re-screening interval of 3 years. References: [place] [employer] Guideline for Colorectal Cancer Screening: https://www.cancer.org/cancer/ddvrj-ohjnen-amyzls/apsgsbedc-epkttqlfq-coshtkh/ac s-rec ommendations.html.; Michael KEARNS, Joey GUZMAN, Samm BartlettK, Colorectal Cancer Screening: Recommendations for Physicians and Patients from the U.S. Multi-Society Task Force on Colorectal Cancer Screening , Am J Gastroenterology 2017; 112:3394-7043. TEST DESCRIPTION: Composite algorithmic analysis of stool [...] Petersen et al, N Engl J Med 2014;370(14):3553-6840.) Cologuard may produce a false negative or false positive result (no colorectal cancer or precancerous polyp present at colonoscopy follow up). A negative Cologuard test result does not guarantee the absence of CRC or advanced adenoma (pre-cancer). The current Cologuard screening interval is every 3 years. ([place] [employer] Society and U.S. Multi-Society Task Force). Cologuard performance data in a 10,000 patient pivotal study using colonoscopy as the reference method can be accessed at the following location: www.Android App Review Source/results. Additional description of the Cologuard test process, warnings and precautions can be found at www.[employer]. Stool specimen (specimen) (Rectum) 08/10/2024 7:55 AM ADULT EDUCATION MANAGER 08/11/2024 1:34 PM ADULT EDUCATION MANAGER Viki Escobar DO URINE Final Resu lt [employer] (CLIA #:[id number]) [address] [place] [place] [id number], * DISABILITY PROGRAM NAVIGATOR THIN PREP PAP AND HPV DNA - AGE 25 AND OVER ([facility]) (08/03/2024 5:05 PM ADULT EDUCATION MANAGER) CLINICAL INFORMATION [facility] Comment:None given LMP [facility] Comment:POSTMENOPAUSAL PREV. PAP [facility] Comment:11/10/18, NIL -HPV PREV. BX [facility] Comment:NO SOURCE DISABILITY PROGRAM NAVIGATOR [email or web address] Comment:Cervix STATEMENT OF ADEQUACY [facility] Comment: Satisfactory for evaluation. Endocervical/transformation zone component present. INTERPRETATION/RESU LT [facility] Comment: Cytology Results: Negative for intraepithelial lesion or malignancy. Atrophic pattern; predominantly parabasal cells COMMENT [facility] Comment: This Pap test has been evaluated with computer assisted technology. DANCING INSTRUCTOR [facility] Comment: SXN, CT(ASCP) CT Screening location: [address] [address] THINPREP TIS PAP ALWAYS MESSAGE [facility] Comment: EXPLANATORY NOTE: The Pap is a [...] HIGH RISK Not Detected NOT DETECTED [facility] Comment: Not Detected High Risk HPV types (16,18,31,33,35,39,45,51,52, 56,58,59,66,68) were not detected. Other HPV types which cause anogenital lesions may be present. The significance of the other types of HPV in malignant processes has not been established. Methodology: Real Time PCR Other (Other) 08/03/2024 5:0 5 PM ADULT EDUCATION MANAGER 08/04/2024 9:54 AM ADULT EDUCATION MANAGER Viki Escobar DO PATHOLOGY/CYTOLOGY Final R esult [facility] [employer] [address] [address], [employer] [address] * TSH WITH REFLEX (08/03/2024 4:17 PM ADULT EDUCATION MANAGER) TSH W/REFLEX TO FT4 2.55 mIU/L [facility] Comment: Reference Range > or = 20 Years 0.40-4.50 Ranges First trimester 0.26-2.66 Second trimester 0.55-2.73 Third trimester 0.43-2.91 Blood BLOOD SPECIMEN / Unknown 08/03/2024 4:17 PM ADULT EDUCATION MANAGER 08/03/2024 4:17 PM ADULT EDUCATION MANAGER Viki Escobar DO CHEMISTRY Final Resu lt [employer] [facility] [address] [place] [address], [place] [phone] [facility] [address] [place] [address] * XR MAMMO TEMI BILAT SCREEN (07/06/2024 [...] care provider. 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
[2024-10-30] MEDS: MECLIZINE HCL 25 MG TABLET PO (12:12)
[2024-10-30] MEDS: 0.9 % SODIUM CHLORIDE 1000 ml 1,000 ML IV (12:12)
[2024-10-30 12:14] LABS: Basophils Absolute Auto 0.03 K/uL (0.00-0.30); Basophils Percent Auto 0.4 % (0.0-3.0); Eosinophils Absolute Auto 0.05 K/uL (0.00-0.50); Eosinophils Percent Auto 0.7 % (0.0-7.0); Hematocrit 38.4 % (33.0-51.0); Hemoglobin* 12.7 gm/dL (12.0-16.0); Immature Granulocytes Abs Auto 0.01 K/uL (0.00-0.30); Immature Granulocytes Pct Auto 0.1 %; Lymphocytes Absolute Auto 1.47 K/uL (0.90-2.90); Lymphocytes Percent Auto 20.7 % (20-44); Mean Corpuscular HGB Conc 33 gm/dL (32-36); Mean Corpuscular Hemoglobin 30 pg (26-34); Mean Corpuscular Volume 89 fL (80-100); Neutrophils Absolute Auto 5.05 K/uL (1.7-7.0); Neutrophils Percent Auto 71.1 % (42.0-72.0); Platelet Count* 179 K/uL (140-440); RDW Coefficient of Variation % 12.1 % (11.5-15.5); White Blood Count* 7.11 K/uL (4.50-11.00)
[2024-10-30 12:23] LABS: Slide Review Reflex No
[2024-10-30 12:28] LABS: Chloride* 104 mmol/L (96-114); Potassium* 3.9 mmol/L (3.6-5.1); Sodium* 138 mmol/L (135-149)
[2024-10-30 12:31] LABS: Anion Gap 9 mEq/L (7-15); Blood Urea Nitrogen* 22 mg/dL (7-30); Calcium* 8.9 mg/dL (8.4-10.6); Carbon Dioxide* 25 mmol/L (20-32); Creatinine* 0.7 mg/dL (0.5-1.5); Est. Creatinine Clearance* 75.66; Estimated Glomerular Filt Rate 103 ml/min; Glucose* 99 mg/dL (60-115)
[2024-10-30 12:32] LABS: Magnesium* 2.1 mg/dL (1.5-2.6)
[2024-10-30 12:39] LABS: Appearance Urine Clear (Clear); Bilirubin Urine Negative (Negative); Blood Urine Negative (Negative); Color Urine Yellow (Yellow); Glucose Urine Negative (Negative); Ketones Urine Negative (Negative); Leukocyte Esterase Urine Negative (Negative); Nitrite Urine Negative (Negative); Protein Urine Negative (Negative); Urobilinogen Urine 0.2 (0.2-1.0)
[2024-10-30 12:43] LABS: Troponin I* < 0.01 ng/mL (0.01-0.04)
[2024-10-30 13:03] LABS: RBC Urine 0-2 (0-2); WBC Urine 0-2 (0-5)
== END 2024-10-30 13:44 | disposition home or self-care (01) ==
PROVIDERS: Emergency Provider Family Medicine; PCP Family Medicine
DX: R42 Dizziness and giddiness (principal)
CPT/HCPCS: 36415; 80048; 81001; 83735; 84443; 84484; 85025; 93005; 96360; 99284; A9270; J7030

== ENCOUNTER 2024-11-09 15:15 | Outpatient (RCR) | payer OTHER, SELFPAY | END 2025-03-09 23:59 | disposition home or self-care (01) | PROVIDERS: PCP Family Medicine; Visit Provider Family Medicine | DX: M25.561 Pain in right knee (principal); M25.512 Pain in left shoulder; G89.29 Other chronic pain; Z51.89 Encounter for other specified aftercare | CPT/HCPCS: 97110; 97140; 97161; 97162 ==